=== PATIENT | male | born 1950 | race Caucasian/White ===

== ENCOUNTER 2021-04-04 09:37 | Outpatient (REF) | payer MEDICARE, SELFPAY ==
[2021-04-04 11:01] LABS: Hematocrit 45.6 % (42.0-52.0); Hemoglobin 15.1 g/dl (14.0-18.0); Mean Corpuscular HGB Conc 33.1 g/dl (31.0-36.0); Mean Corpuscular Hemoglobin 30.9 pg (27.0-33.0); Mean Corpuscular Volume 93.4 fL (80.0-98.0); Mean Platelet Volume 9.9 fL (9.4-12.4); Platelet Count 228 X10*3/uL (160-400); Red Blood Count 4.88 X10*6/uL (4.60-5.80); Red Cell Distribution Width 12.3 % (11.0-16.0)
[2021-04-04 11:41] LABS: Alanine Aminotransferase 16 U/L (0-40); Albumin Level 4.3 g/dL (3.5-5.0); Alkaline Phosphatase 54 U/L (39-117); Anion Gap 12 (12-20); Aspartate Amino Transferase 18 U/L (5-37); Bilirubin Total 0.8 mg/dL (0.0-1.0); Blood Urea Nitrogen 27 mg/dL (9-16); Calcium 9.1 mg/dL (8.4-10.2); Carbon Dioxide 27 mmol/L (22-29); Chloride 102 mmol/L (96-108); Cholesterol 196 mg/dL; Estimated Glomerular Filt Rate > 60; Glucose Fasting 101 mg/dL (60-99); HDL Cholesterol 44 mg/dL; LDL Cholesterol Calculated 121 mg/dl; Potassium 4.4 mmol/L (3.3-5.1); Sodium 137 mmol/L (135-145); Total Protein 6.7 g/dL (6.5-8.0); Triglycerides 155 mg/dL
== END 2021-04-04 09:38 | disposition home or self-care (01) ==
LOC: HO.MANLDS 09:37
PROVIDERS: PCP Internal Medicine; Visit Provider Internal Medicine
DX: E78.00 Pure hypercholesterolemia, unspecified (principal)
CPT/HCPCS: 36415; 80053; 80061; 85027

== ENCOUNTER 2023-05-12 10:32 | Outpatient (REF) | payer MEDICARE, SELFPAY ==
[2023-05-12 13:28] LABS: MANUAL DIFF FLAG NO
[2023-05-12 13:45] LABS: Basophils Percent Auto 0.2 % (0-2); Eosinophils Absolute Auto 0.2 X10*3/uL (0.0-0.4); Hematocrit 44.8 % (42.0-52.0); Hemoglobin 15.2 g/dl (14.0-18.0); Imm Gran Abs Auto 0.03 X10*3/uL (0.00-0.03); Imm Gran Pct Auto 0.3 % (0.0-0.4); Lymphocytes Absolute Auto 0.8 X10*3/uL (1.2-4.9); Lymphocytes Percent Auto 8.3 % (20-40); Mean Corpuscular HGB Conc 33.9 g/dl (31.0-36.0); Mean Corpuscular Hemoglobin 30.7 pg (27.0-33.0); Mean Corpuscular Volume 90.5 fL (80.0-98.0); Monocytes Absolute Auto 1.1 X10*3/uL (0.1-1.2); Neutrophils Absolute Auto 7.5 x10*3/uL (2.0-8.3); Neutrophils Percent Auto 78.2 % (45-73); Platelet Count 289 X10*3/uL (160-400); Red Blood Count 4.95 X10*6/uL (4.60-5.80); Red Cell Distribution Width 12.2 % (11.0-16.0); White Blood Count 9.6 X10*3/uL (4.8-10.8)
[2023-05-12 13:51] LABS: Alanine Aminotransferase 12 U/L (0-40); Alkaline Phosphatase 77 U/L (39-117); Anion Gap 16 (12-20); Aspartate Amino Transferase 15 U/L (5-37); Bilirubin Total 0.8 mg/dL (0.0-1.0); Blood Urea Nitrogen 17 mg/dL (9-16); Calcium 9.2 mg/dL (8.4-10.2); Carbon Dioxide 26 mmol/L (22-29); Chloride 101 mmol/L (96-108); Cholesterol 167 mg/dL (<200); Estimated Glomerular Filt Rate > 60; Glucose Random 99 mg/dL (60-115); HDL Cholesterol 41 mg/dL (>40); LDL Cholesterol Calculated 108 mg/dL (<100); Sodium 139 mmol/L (135-145); Total Protein 7.4 g/dL (6.5-8.0); Triglycerides 92 mg/dL (<150)
[2023-05-12 14:12] LABS: Prostate Specific Antigen 2.71 ng/mL (<0.05-4.0)
== END 2023-05-12 10:33 | disposition home or self-care (01) ==
LOC: HO.MANLDS 10:32
PROVIDERS: Visit Provider Internal Medicine
DX: I10 Essential (primary) hypertension (principal); Z12.5 Encounter for screening for malignant neoplasm of prostate
CPT/HCPCS: 36415; 80053; 80061; 84153; 85025

== ENCOUNTER 2024-01-19 13:30 | Outpatient (REF) | payer MEDICARE, SELFPAY ==
[2024-01-19 17:47] LABS: MANUAL DIFF FLAG NO
[2024-01-19 17:58] LABS: Appearance Urine Clear; Color Urine Yellow; Glucose Urine UA Negative (Negative); Leukocyte Esterase Urine Negative (Negative); Nitrite Urine Negative (Negative); Urine Blood Negative (Negative); Urine Ketones Negative (Negative); Urine Protein Negative (Neg-Trace)
[2024-01-19 18:04] LABS: Bacteria Urine None Seen (None Seen); Hyaline Casts Urine 0-2 /LPF (0-2); RBC Urine 0-2 /HPF (0-2); Squamous Epithelial Cell Urine 0-2 /HPF (0-2); WBC Urine 0-5 /HPF (0-5)
[2024-01-19 18:05] LABS: Alanine Aminotransferase 22 U/L (0-40); Albumin Level 3.6 g/dL (3.5-5.0); Alkaline Phosphatase 120 U/L (39-117); Anion Gap 16 (12-20); Aspartate Amino Transferase 31 U/L (5-37); Bilirubin Total 0.4 mg/dL (0.0-1.0); Blood Urea Nitrogen 16 mg/dL (9-16); Calcium 8.7 mg/dL (8.4-10.2); Carbon Dioxide 26 mmol/L (22-29); Chloride 100 mmol/L (96-108); Estimated Glomerular Filt Rate > 60; Glucose Random 141 mg/dL (60-115); Potassium 3.9 mmol/L (3.3-5.1); Sodium 138 mmol/L (135-145); Total Protein 7.2 g/dL (6.5-8.0)
[2024-01-19 18:16] LABS: Basophils Percent Auto 0.5 % (0-2); Eosinophils Absolute Auto 0.2 X10*3/uL (0.0-0.4); Eosinophils Percent Auto 2.1 % (0-4); Hematocrit 41.7 % (42.0-52.0); Hemoglobin 13.6 g/dl (14.0-18.0); Imm Gran Abs Auto 0.05 X10*3/uL (0.00-0.03); Imm Gran Pct Auto 0.6 % (0.0-0.4); Lymphocytes Absolute Auto 0.9 X10*3/uL (1.2-4.9); Lymphocytes Percent Auto 10.7 % (20-40); Mean Corpuscular HGB Conc 32.6 g/dl (31.0-36.0); Mean Corpuscular Volume 92.1 fL (80.0-98.0); Mean Platelet Volume 9.5 fL (9.4-12.4); Monocytes Absolute Auto 0.7 X10*3/uL (0.1-1.2); Monocytes Percent Auto 7.7 % (2-11); Neutrophils Absolute Auto 6.6 x10*3/uL (2.0-8.3); Neutrophils Percent Auto 78.4 % (45-73); Platelet Count 363 X10*3/uL (160-400); Red Blood Count 4.53 X10*6/uL (4.60-5.80); Red Cell Distribution Width 12.6 % (11.0-16.0); White Blood Count 8.4 X10*3/uL (4.8-10.8)
[2024-01-19 19:40] LABS: Erythrocyte Sedimentation Rate 73 MM/HR (0-15)
== END 2024-01-19 13:31 | disposition home or self-care (01) ==
LOC: HO.MANLDS 13:30
PROVIDERS: Visit Provider Internal Medicine
DX: R50.9 Fever, unspecified (principal)
CPT/HCPCS: 36415; 80053; 81001; 85025; 85652

== ENCOUNTER 2024-02-01 09:06 | Outpatient (REF) | payer MEDICARE, SELFPAY ==
[2024-02-01 14:34] LABS: Erythrocyte Sedimentation Rate 7 MM/HR (0-15)
== END 2024-02-01 09:07 | disposition home or self-care (01) ==
LOC: HO.MANLDS 09:06
PROVIDERS: Visit Provider Internal Medicine
DX: M35.3 Polymyalgia rheumatica (principal)
CPT/HCPCS: 36415; 85652

== ENCOUNTER 2024-02-08 09:20 | Outpatient (REF) | payer MEDICARE, SELFPAY ==
[2024-02-08 14:05] LABS: Basophils Percent Auto 0.2 % (0-2); Eosinophils Percent Auto 0.1 % (0-4); Hematocrit 44.3 % (42.0-52.0); Hemoglobin 14.8 g/dl (14.0-18.0); Imm Gran Abs Auto 0.13 X10*3/uL (0.00-0.03); Imm Gran Pct Auto 1.4 % (0.0-0.4); Lymphocytes Absolute Auto 0.6 X10*3/uL (1.2-4.9); Lymphocytes Percent Auto 5.9 % (20-40); MANUAL DIFF FLAG SCAN; Mean Corpuscular HGB Conc 33.4 g/dl (31.0-36.0); Mean Corpuscular Volume 89.9 fL (80.0-98.0); Mean Platelet Volume 9.7 fL (9.4-12.4); Monocytes Absolute Auto 0.2 X10*3/uL (0.1-1.2); Monocytes Percent Auto 2.3 % (2-11); Neutrophils Absolute Auto 8.5 x10*3/uL (2.0-8.3); Neutrophils Percent Auto 90.1 % (45-73); Platelet Count 284 X10*3/uL (160-400); Red Blood Count 4.93 X10*6/uL (4.60-5.80); Red Cell Distribution Width 14.2 % (11.0-16.0); SCAN SMEAR FLAG 1; White Blood Count 9.5 X10*3/uL (4.8-10.8)
[2024-02-08 14:14] LABS: Alanine Aminotransferase 11 U/L (0-40); Albumin Level 3.7 g/dL (3.5-5.0); Alkaline Phosphatase 59 U/L (39-117); Anion Gap 12 (12-20); Aspartate Amino Transferase 20 U/L (5-37); Bilirubin Total 0.6 mg/dL (0.0-1.0); Blood Urea Nitrogen 34 mg/dL (9-16); Calcium 8.7 mg/dL (8.4-10.2); Carbon Dioxide 26 mmol/L (22-29); Chloride 102 mmol/L (96-108); Estimated Glomerular Filt Rate > 60; Glucose Random 118 mg/dL (60-115); Potassium 4.1 mmol/L (3.3-5.1); Sodium 136 mmol/L (135-145); Total Protein 6.2 g/dL (6.5-8.0)
[2024-02-08 14:21] LABS: SLIDE REVIEW VERIFIED
[2024-02-08 14:41] LABS: Erythrocyte Sedimentation Rate 2 MM/HR (0-15)
== END 2024-02-08 09:21 | disposition home or self-care (01) ==
LOC: HO.MANLDS 09:20
PROVIDERS: Visit Provider Internal Medicine
DX: R50.9 Fever, unspecified (principal)
CPT/HCPCS: 36415; 80053; 85025; 85652

== ENCOUNTER 2024-02-25 10:16 | Outpatient (REF) | payer MEDICARE, SELFPAY ==
[2024-02-25 15:31] LABS: Erythrocyte Sedimentation Rate 2 MM/HR (0-15)
--- OUTSIDE RECORDS SUMMARY | 2024-03-01 07:20 | XMS_ITS | Continuity of Care Document ---
Author Organization [facility], [facility] Address [address] [place] [address] Assessment No assessment recorded. Plan of Treatment Reminders Order Date Submit Date Provider Last Modified By Organization Details Last Modified Time Details Appointments FOLLOW UP 15 2023 11:15A M DR CAREY Not available Not available Not available Lab ESR (erythroc yte sedimenta tion rate), blood 2023 [facility], [address] [place] [address], [id number], 02/28/2024 11:10:46 ESR (erythroc yte sedimenta tion rate), blood 2023 024 [facility], [address] [place] [address], [id number], 02/28/2024 11:10:46 Referral None recorded. Procedures None recorded. Surgeries None recorded. Imaging None recorded. Medication Orders zolpidem 10 mg tablet 2023 024 [facility] #[id number], [address] [place], [address], 02/14/2024 15:00:54 prednison e 10 mg tablet 2023 024 [facility] #[id number], [address] [place], [address], 02/14/2024 15:00:44 Patient TargetsNo targets recorded. Patient Instructions Encounter Date Encounter Id Patient Instructions Last Modified By Organization Details Last Modified Time 02/14/2024 [id number] insomnia: care instructions Not available 02/14/2024 15:00:26 polymyalgia rheumatica: care instructions Not available 02/14/2024 14:55:16 Reason for Referral None Reported. Results Created Date Observation Date Name Description Value Unit Range Abnormal Flag Note LastModifiedBy Organization Detail LastModifiedTime 02/19/20 24 02/18/2024 US, echoc ardio gram, trans thora cic, compl ete, w/ color flow No observ ation record ed. [email or web address] [address], [address], 02/21/2024 11:00:44 Result Notes None recorded. Problems Name Problem SNOMED Code Status Onset Date Resolution Date Notes Provider Name and Address Organization Details Recorded Time Essential hypertensio n 99501536 Active 2017 Soheila ham [facility] 8 10:35:22 Hypercholes terolemia 32015680 Active 2017 Soheila ham [facility] 8 10:35:27 Benign prostatic hyperplasia 430470722 Active 2017 Soheila ham [facility] 8 10:35:31 Diverticuli tis 885445757 Active 2017 Soheila ham [facility] 8 10:35:41 Acute sinusitis 70644092 Active 2022 JULISSA KRAUS [address] [facility],[place], [address], [facility] 3 12:05:10 COVID-19 273105705 Active 2022 Mando Carey, [address] [facility],[place], [address], [facility] 3 14:54:04 Post-acute COVID-19 4344039805 Active 2022 Mando Carey, DO [address] [facility],[place], [address], [facility] 3 14:54:31 Pneumonia caused by SARS-CoV-2 4315027549201 [address]7556 Active 2022 Mando CareyDO [address],[place], [address], [facility] 3 14:55:45 Cough 68530431 Active [address],[place], [address], [facility] 4 16:38:30 Fever 649318568 Active [address],[place], [address], [facility] 4 11:58:49 Polymyalgia rheumatica 01453985 Active 2023 Mando Carey [facility],[place], [address], [facility] 4 11:26:42 Dyspnea on exertion 36419070 Active 2023 Mando [address] [facility],[place], [address], [facility] 4 11:34:02 Insomnia 877252537 Active [address],[place], [address], [facility] 4 14:59:21 Cervical arthritis 798603395 Active 2017 Mando Carey [facility] [address],[place], [address], [facility] 8 11:04:29 Notes:gerd Problem Notes None recorded. Procedures Surgical History Date Name Laterality Status Provider Name and Address Organization Details Recorded Time 5 Colonoscopy completed Mando Carey [address],[place], [address], [facility] 11/23/2017 15:13:02 Imaging Results None recorded. Procedure Notes None recorded. Medical Equipment None Reported. Allergies No known drug allergies Medications Name Sig Start Date Stop Date Status Note LastModified by Organization Details LastModified Time atorvastati n 40 mg tablet TAKE 1 TABLET DAILY active Not Available Not Available No t Available prednisone 10 mg tablet Take 4 tablets every day by oral route for 30 days. active Not Available Not Available No t Available doxycycline hyclate 100 mg capsule 07/19 completed Not Available Not Available Not Available azithromyci n 250 mg tablet TAKE 2 TABLETS (500 MG) BY ORAL ROUTE ONCE DAILY FOR 1 DAY THEN 1 TABLET (250 MG) BY ORAL ROUTE ONCE DAILY FOR 4 DAYS 01/24 completed Not Available Not Available Not Available benzonatate 200 mg capsule TAKE 1 CAPSULE BY MOUTH THREE TIMES DAILY FOR 7 DAYS NEEDED FOR COUGH 01/24 completed Not Available Not Available Not Available lovastatin 40 mg tablet TAKE 1 TABLET DAILY 07/19 completed Not Available Not Available Not Available prednisone 5 mg tablet 07/19 completed Not Available Not Available Not Available amlodipine 5 mg tablet TAKE 1 TABLET BY MOUTH EVERY DAY FOR 30 DAYS 01/24 completed Not Available Not Available Not Available losartan 100 mg-hydrochl orothiazide 25 mg tablet TAKE 1 TABLET DAILY active Not Available Not Available No t Available omeprazole 20 mg capsule,del ayed release TAKE 1 CAPSULE DAILY active Not Available Not Available No t Available Aspir-81 mg tablet,neela yed release Take 1 tablet every day by oral route. active Not Available Not Available No t Available levofloxaci n 500 mg tablet TAKE 1 TABLET BY MOUTH EVERY DAY FOR 7 DAYS. 01/24 completed Not Available Not Available Not Available zolpidem 10 mg tablet Take 1 tablet every day by oral route as needed for 30 days. active Not Available Not Available No t Available methylpredn isolone 4 mg tablets in a dose pack Take 1 dose pk by oral route as directed for 6 days. 01/24 completed Not Available Not Available Not Available fluticasone propionate 50 mcg/actuati on nasal spray,suspe nsion inhale 1 spray each nostril twice a day 01/24 completed Not Available Not Available Not Available amoxicillin 875 mg-potassiu m clavulanate 125 mg tablet TAKE 1 TABLET BY MOUTH TWICE A DAY FOR 10 DAYS 05/15 completed Not Available Not Available Not Available losartan 100 mg-hydrochl orothiazide 12.5 mg tablet TAKE 1 TABLET DAILY 11/03 completed Not Available Not Available Not Available Fluzone High-Dose Quad (PF) 240 mcg/0.7 mL IM syringe [facility] 01/22 completed Not Available Not Available Not Available Vitals Date Recorded Body height Body mass index (BMI) Body weight Heart rate Oxygen saturation Oxygen saturation in Arterial blood by Pulse oximetry Systolic blood pressure Diastolic blood pressure Provider Name and Address Organization Details Last Updated DateTime 4 175.26 cm 29.5 kg/m2 95693.4 7 g 100 /min 98 % 98 % 144 mm[Hg] 74 mm[Hg] Chula Rojas [facility] 4 14:37:07 Social History Question Answer Notes LastModified by Organizat ion Details LastModified Time Tobacco Smoking Status Former Smoker Not Available [facility] 03:36:24 What Was The Date Of Your Most Recent Tobacco Screening? 02/14/2024 [email or web address] Information not available 02/14/2024 Do You Or Have You Ever Used Any Other Forms Of Tobacco Or Nicotine? No [email or web address] Information not available 08/08/2021 Sex: Unknown Functional Status None recorded. Mental Status None recorded. Family History Nothing Reported. Medical History No medical history recorded. Immunizations Vaccine Type Date Status Note Provider Nam e and Address Organization Details Recorded Time Pneumococcal conjugate PCV 13 8 completed [place], [address], [facility] 12/31/2017 09:32:36 Influenza, split virus, quadrivalent, preservative 8 completed DO [facility]cos [facility] [place], [address], [facility] 12/31/2017 09:32:44 influenza, unspecified formulation 2 [facility]/15/2022 14:28:14 [facility] 12:07:16 zoster live 5 completed Soheila ham [facility] 03/18/2018 12:07:45 Influenza, split virus, quadrivalent, preservative 9 [facility] 08:02:18 Influenza, split virus, quadrivalent, preservative 0 completed Opal ham [facility] 01/23/2020 13:29:57 COVID-19, mRNA, LNP-S, PF, 100 mcg/0.5mL dose or 50 mcg/0.25mL dose 1 completed Soheila ham [facility] 08/05/2020 15:50:51 COVID-19, mRNA, LNP-S, PF, 100 mcg/0.5mL dose or 50 mcg/0.25mL dose 1 completed Soheila ham [facility] 08/06/2020 15:04:10 Past Encounters Encounter ID Performer Location Encounter Start Date Encounter Closed Date Diagnosis/Indication Diagnosis SNOMED-CT Code Diagnosis ICD10 Code [id number] Mando Carey [facility] [address] [place] [phone] 01/25/2024 10:42:42 01/25/2024 11:47:58 Depression screening 090432403 Z13.31 Active or passive immunization 473720710 Z23 Essential hypertension 76768876 I10 Polymyalgi a rheumatica 69253668 M35.3 Dyspnea on exertion 6084 5006 R06.09 [id number] Mando Carey [facility] [address] [place] [phone] 02/14/2024 14:22:44 02/14/2024 15:04:32 Essential hypertension 53643560 I10 Hypercholesterolemia 136 93390 E78.00 Polymyalgi a rheumatica 03776420 M35.3 Insomnia 476564502 G47.0 9 Health Concerns Section Related Observation LastModified by Organization Detai ls LastModified Time None Recorded Concern Status LastModified by Organization Details LastModified Time None Recorded Payers Encounter Date Sequence Insurance Name Policy Number Policy Lyeva Covered Member ID Leyva Member ID Guarantor Name 02/14/2024 1 [place] [employer] Zaid Castro [id number] Zaid Navase 02/14/2024 2 [place] [id number] Zaid Castro [id number] Zaid Matthew Notes Date Note Type Note Provider Name and Address Organization Details Recorded Time 02/14/2024 text/html here for recjk o f pmr doing fine no sx just is not able to sleepfeels great but having a hard time sleeping usus every other nightesr was 71 after pred down to 7 then 2all myalgias are goneprob is not sleepingtoherwise states feels great Mando Carey, DO [address] [facility] [address], [place], [address], [facility] 02/14/2024 15:02:29
--- OUTSIDE RECORDS SUMMARY | 2024-03-01 07:20 | XMS_ITS | Data Portability ---
Author Organization [facility], Home Service Address [address] [place] [address] Assessment Encounter Date Assessment Date Assessment LastModified by Organization Details LastModified Time 11/10/2022 11/10/2022 [id number] [place] [id number] ([employer] SALESPERSON) MDM MODERATE MUST MEET 2 OUT OF 3 ELEMENTS: PROBLEMS, DATA OR RISK ELEMENT 1: PROBLEMS ADDRESSED 1 OR MORE CHRONIC ILLNESS WITH EXACERBATION OR 2 OR MORE STABLE CHRONIC ILLNESSES OR 1 UNDIAGNOSED NEW PROBLEM OR 1 ACUTE ILLNESS W/SYMPTOMS OR 1 ACUTE COMPLICATED INJURY ELEMENT 2: DATA MUST MEET 1 OF 3 CATEGORIES CATEGORY 1: REVIEW OF PRIOR EXTERNAL NOTES, REVIEW OF RESULTS, ORDERING OF EACH TEST, ASSESSMENT REQUIRING INDEPENDENT HISTORIAN OR CATEGORY 2: INDEPENDENT INTERPRETATION OF TESTS BY ANOTHER PHYSICIAN OR SPECIALIST OR CATEGORY 3: DISCUSSION OF MGT OR TEST INTERPRETATION W/EXTERNAL PHYSICIAN OR SPECIALIST ELEMENT 3: RISK RISK OF COMPLICATIONS AND/OR MORBIDITY OR MORTALITY OF PATIENT MANAGEMENT PROVIDER MUST THOROUGHLY DOCUMENT EACH ELEMENT THAT IS COVERED Not available 11/10/2022 14:18:12 05/17/2023 05/17/2023 [id number] [place] [id number] ([employer] SALESPERSON) : MDM LOW MUST MEET 2 OF 3 ELEMENTS: PROBLEMS, DATA OR RISK ELEMENT 1: PROBLEMS ADDRESSED (LOW): 2 OR MORE SELF-LIMITED OR MINOR PROBLEMS OR 1 STABLE CHRONIC ILLNESS OR 1 ACUTE UNCOMPLICATED ILLNESS OR INJURY ELEMENT 2: DATA TO BE REVISED AND ANALYZED (LOW) MUST MEET 1 OF 2 CATEGORIES: CATEGORY 1. REVIEW OF PRIOR EXTERNAL NOTES/RESULTS, ORDERING OF TEST(S) CATEGORY 2. ASSESSMENT REQUIRING INDEPENDENT HISTORIAN(S) INCLUDE WHO THE HISTORIAN IS AND RELATION TO PT AND WHY PT IS UNABLE TO GIVE COMPLETE HISTORY ELEMENT 3: RISK (LOW) RISK OF COMPLICATIONS AND/OR MORBIDITY OR MORTALITY OF PATIENT MANAGEMENT PROVIDER MUST THOROUGHLY DOCUMENT ALL OF THE ELEMENTS COVERED Not available 05/17/2023 14:25:40 01/25/2024 01/25/2024 [id number] [place] [id number] (E[employer] SALESPERSON) MDM MODERATE MUST MEET 2 OUT OF 3 ELEMENTS: PROBLEMS, DATA OR RISK ELEMENT 1: PROBLEMS ADDRESSED 1 OR MORE CHRONIC ILLNESS WITH EXACERBATION OR 2 OR MORE STABLE CHRONIC ILLNESSES OR 1 UNDIAGNOSED NEW PROBLEM OR 1 ACUTE ILLNESS W/SYMPTOMS OR 1 ACUTE COMPLICATED INJURY ELEMENT 2: DATA MUST MEET 1 OF 3 CATEGORIES CATEGORY 1: REVIEW OF PRIOR EXTERNAL NOTES, REVIEW OF RESULTS, ORDERING OF EACH TEST, ASSESSMENT REQUIRING INDEPENDENT HISTORIAN OR CATEGORY 2: INDEPENDENT INTERPRETATION OF TESTS BY ANOTHER PHYSICIAN OR SPECIALIST OR CATEGORY 3: DISCUSSION OF MGT OR TEST INTERPRETATION W/EXTERNAL PHYSICIAN OR SPECIALIST ELEMENT 3: RISK RISK OF COMPLICATIONS AND/OR MORBIDITY OR MORTALITY OF PATIENT MANAGEMENT PROVIDER MUST THOROUGHLY DOCUMENT EACH ELEMENT THAT IS COVERED Not available 01/25/2024 11:33:54 Plan of Treatment Reminders Order Date Submit Date Provider Last Modified By Organization Details Last Modified Time Details Appointments FOLLOW UP 15 2023 11:15A M DR CAREY Not available Not available Not available Lab CMP, serum or plasma 2022 023 [facility], [address] [place] [address], [id number], 05/13/2023 14:59:02 CBC 2022 023 [facility], [address] [place] [address], [id number], 11/10/2022 14:25:23 PSA, serum or plasma 2022 023 [facility], [address] [place] [address], [id number], 11/10/2022 14:25:23 lipid panel, blood 2022 023 [facility], [address] [place] [address], [id number], 11/10/2022 14:25:23 ESR (erythroc yte sedimenta tion rate), blood 2023 024 [facility], [address] [place] [address], [id number], 02/02/2024 11:51:12 ESR (erythroc yte sedimenta tion rate), blood 2023 024 [facility], [address] [place] [address], [id number], 02/09/2024 11:29:45 ESR (erythroc yte sedimenta tion rate), blood 2023 024 [facility], [address] [place] [address], [id number], 02/09/2024 11:29:45 ESR (erythroc yte sedimenta tion rate), blood 2023 024 [facility], [address] [place] [address], [id number], 02/28/2024 11:10:46 ESR (erythroc yte sedimenta tion rate), blood 2023 024 [facility], [address] [place] [address], [id number], 02/28/2024 11:10:46 Referral None recorded. Procedures None recorded. Surgeries None recorded. Imaging US, echocardi ogram, transthor acic, complete, w/ color flow 2023 [email or web address] Not available 01/26/2024 08:31:38 Medication Orders amlodipin e 5 mg tablet 2023 [facility]2024, [address] [place], [address], 01/25/2024 10:51:27 prednison e 10 mg tablet 2023 024 [facility] #5, [address] [place], [address], 01/25/2024 11:29:36 zolpidem 10 mg tablet 2023 024 [facility]2024, [address] [place], [address], 02/14/2024 15:00:54 prednison e 10 mg tablet 2023 024 [facility] #2024, [address] [place], [address], 02/14/2024 15:00:44 Patient TargetsNo targets recorded. Patient Instructions Encounter Date Encounter Id Patient Instructions Last Modified By Organization Details Last Modified Time 01/25/2024 [id number] polymyalgia rheumatica: care instructions Not available 01/25/2024 11:29:34 02/14/2024 [id number] insomnia: care instructions Not available 02/14/2024 15:00:26 polymyalgia rheumatica: care instructions Not available 02/14/2024 14:55:16 Reason for Referral None Reported. Results Created Date Observation Date Name Description Value Unit Range Abnormal Flag Note LastModifiedBy Organization Detail LastModifiedTime 10/04/19 24 10/04/2023 XR, chest , 2 view No observ ation record ed. [email or web address] [address], [address], 10/08/2023 08:42:28 02/19/20 24 02/18/2024 US, echoc ardio gram, trans thora cic, compl ete, w/ color flow No observ ation record ed. [email or web address] [address], [address], 02/21/2024 11:00:44 Result Notes None recorded. Problems Name Problem SNOMED Code Status Onset Date Resolution Date Notes Provider Name and Address Organization Details Recorded Time Essential hypertensio n 36479157 Active 2017 [facility] 8 10:35:22 Hypercholes terolemia 02997249 Active 2017 [facility] 8 10:35:27 Benign prostatic hyperplasia 269370958 Active 2017 Soheila ham [facility] 8 10:35:31 Diverticuli tis 642960244 Active 2017 [facility] 8 10:35:41 Acute sinusitis 85638977 Active 2022 JULISSA [address]US [address],[place], [facility] [place], [address], [facility] 3 12:05:10 COVID-19 838298694 Active 2022 Mando Carey DO [address],[place], [facility] [place], [address], [facility] 3 14:54:04 Post-acute COVID-19 3845519502 Active 2022 Mando Carey DO [address],[place], [facility] [place], [address], [facility] 3 14:54:31 Pneumonia caused by SARS-CoV-2 6325287570811 06901 Active 2022 Mando Carey DO [address],[place], [facility] [place], [address], [facility] 3 14:55:45 Cough 69123331 Active 2023 Mando Carey DO [address],[place], [facility] [place], [address], [facility] 4 16:38:30 Fever 078969852 Active 2023 Mando Carey DO [address],[place], [facility] [place], [address], [facility] 4 11:58:49 Polymyalgia rheumatica 62800045 Active 2023 Mando Carey DO [address],[place], [facility] [place], [address], [facility] 4 11:26:42 Dyspnea on exertion 33447062 Active 2023 Mando Carey, [address] [place] [address],[place], [address], [facility] 4 11:34:02 Insomnia 424444306 Active 2023 Mando Carey [address],[place], [address], [facility] 4 14:59:21 Cervical arthritis 696765696 Active 2017 Mando Carey, [address],[place], [address], [facility] 8 11:04:29 Notes:gerd Problem Notes None recorded. Procedures Surgical History Date Name Laterality Status Provider Name and Address Organization Details Recorded Time 5 Colonoscopy completed Mando Carey [address],[place], [address], [facility] 11/23/2017 15:13:02 Imaging Results Imaging Date Name Status LastModified by Organiz ation Details LastModified Time 10/04/2023 XR, chest, 2 view completed [email or web address] [address], [address], 10/08/2023 08:42:28 02/18/2024 US, echocardiog jenn, transthorac ic, complete, w/ color flow completed [email or web address] [address], [address], 02/21/2024 11:00:44 Procedure Notes None recorded. Medical Equipment None [...] and Address Organization Details Last Updated DateTime 3 175.26 cm 30.4 kg/m2 52237.0 3 g 85 /min 96 % 96 % 140 mm[Hg] 80 mm[Hg] Chula [facility] 3 14:00:53 Date Recorded Body height Body mass index (BMI) Body weight Heart rate Oxygen saturation Oxygen saturation in Arterial blood by Pulse oximetry Systolic blood pressure Diastolic blood pressure Provider Name and Address Organization Details Last Updated DateTime 4 175.26 cm 30.1 kg/m2 13708.8 4 g 78 /min 96 % 96 % 160 mm[Hg] 78 mm[Hg] [facility] 4 14:45:23 Date Recorded Body height Body mass index (BMI) Body weight Heart rate Oxygen saturation Oxygen saturation in Arterial blood by Pulse oximetry Systolic blood pressure Diastolic blood pressure Provider Name and Address Organization Details Last Updated DateTime 4 175.26 cm 29.7 kg/m2 77232.0 7 g 97 /min 97 % 97 % 146 mm[Hg] 86 mm[Hg] Angel Martin [facility] 4 10:53:10 Date Recorded Body height Body mass index (BMI) Body weight Heart rate Oxygen saturation Oxygen saturation in Arterial blood by Pulse oximetry Systolic blood pressure Diastolic blood pressure Provider Name and Address Organization Details Last Updated DateTime 4 175.26 cm 29.5 kg/m2 38185.4 7 g 100 /min 98 % 98 % 144 mm[Hg] 74 mm[Hg] [facility] 4 14:37:07 Social History Question Answer Notes LastModified by Organizat ion Details LastModified Time Tobacco Smoking Status Former Smoker Not Available [facility] 01/23/2020 03:36:24 What Was The Date Of Your Most Recent Tobacco Screening? 02/14/2024 [email or web address] Information not available 02/14/2024 Do You Or [...] Time Pneumococcal conjugate PCV 13 8 completed Mando Carey DO [address] [facility],[place], [place], [address], [facility] 12/31/2017 09:32:36 Influenza, split virus, quadrivalent, preservative 8 completed Mando Carey DO [address] [place] [address],[place], [address], [facility] 12/31/2017 09:32:44 influenza, unspecified formulation 2 completed Christianne ham [facility] 05/15/2022 14:28:14 Td (adult) 2 [facility] 03/18/2018 12:07:16 zoster live 5 completed Soheila ham [facility] 03/18/2018 12:07:45 Influenza, split virus, quadrivalent, preservative 9 completed Opal ham [facility] 11/30/2018 08:02:18 Influenza, split virus, quadrivalent, preservative 0 [facility] 01/23/2020 13:29:57 COVID-19, mRNA, LNP-S, PF, 100 mcg/0.5mL dose or 50 mcg/0.25mL dose 1 completed Soheila ham [facility] 08/05/2020 15:50:51 COVID-19, mRNA, LNP-S, PF, 100 mcg/0.5mL dose or 50 mcg/0.25mL dose 1 jses ham [facility] 08/06/2020 15:04:10 Past Encounters Encounter ID Performer Location Encounter Start Date Encounter Closed Date Diagnosis/Indication Diagnosis SNOMED-CT Code Diagnosis ICD10 Code [id number] Mando Carey DO [facility] 6 [facility],[place] [address] 08/23/2017 10:34:37 08/23/2017 16:08:10 Hypercholesterolemia 01731459 E78.00 Essential hypertension 45025254 I10 Benign pro static hyperplasia 223207369 N40.[id number] [facility] [address] [place] [address] 02/23/2018 08:52:52 02/23/2018 12:28:31 Adult health examination 132357631 Z00.00 Hypercholesterolemia 136 43555 E78.00 Essential hypertension 45838917 I10 [id number] [facility] [address] [place] [address] 03/18/2018 11:43:54 03/18/2018 12:36:31 Essential hypertension 42582375 I10 Hypercholesterolemia 136 71387 E78.00 Gastroesop hageal reflux disease 293720923 K21.[id number] [facility] [address] [place] [address] 07/19/2018 15:40:04 07/20/2018 09:08:28 Essential hypertension 81385104 I10 Hypercholesterolemia 136 25128 E78.00 Abdominal aortic aneurysm screening 312930926 Z13.6 Hepatitis C screening 41 2783044 Z11.59 Gastroesop hageal reflux disease 174849176 K21.[id number] [facility] [address] [place] [address] 02/06/2019 14:49:05 02/06/2019 15:44:53 Essential hypertension 62528210 I10 Hypercholesterolemia 136 69360 E78.00 Gastroesop hageal reflux disease 066105268 K21.9 Benign pro static hyperplasia 171948115 N40.0 Diverticulitis 249404780 K57.[id number] [facility] [address] [place] [address] 08/07/2019 13:57:10 08/07/2019 14:40:35 Essential hypertension 38896965 I10 Benign pro static hyperplasia 180831215 N40.0 Diverticulitis 236976509 K57.92 Cervical arthritis 64621 1000 M46.92 Hypercholesterolemia 136 69317 E78.[id number] [facility] [address] [place], [place] [address] , [place] [address] 01/23/2020 13:21:38 01/23/2020 14:29:23 Essential hypertension 52408333 I10 Gastroesop hageal reflux disease 477304304 K21.[id number] [facility] [address] [place], [place] [address] [address] 08/06/2020 14:53:52 08/06/2020 15:37:54 Essential hypertension 00645635 I10 Benign pro static hyperplasia 822074526 N40.0 Hypercholesterolemia 136 11284 E78.00 Gastroesop hageal reflux disease 557753063 K21.[id number] [facility] [address] [place], [place] [address] , [place] [address] 03/03/2021 08:24:29 03/03/2021 16:20:26 Cervical arthritis 531337121 M46.92 Essential hypertension 14621589 I10 Hypercholesterolemia 136 34450 E78.[id number] [facility] [address] [place] [address], [place] [address] 08/08/2021 13:53:47 08/12/2021 11:27:50 Essential hypertension 24244649 I10 Hypercholesterolemia 136 44824 E78.00 Gastroesop hageal reflux disease 285370177 K21.9 Advance care planning 71 8837330 Z71.89 Cervical arthritis 00819 [address]46.[id number] [facility] [address] [place], [place] [address] , [place] [address] 11/03/2021 15:28:58 11/03/2021 16:21:25 Essential hypertension 65690927 I10 Cervical arthritis 11595 1000 M46.92 Gastroesop hageal reflux disease 383673555 K21.9 [id number] KONSTANTIN TURNER [facility] [address] [place], [place] [address] , [place] [address] 05/04/2022 09:28:22 05/04/2022 13:31:21 Acute sinusitis 64981498 J01.[id number] [facility] [address] [place] [address] 05/15/2022 14:07:00 05/15/2022 16:05:57 Essential hypertension 20292471 I10 Post-acute COVID-19 1119 846961 U09.9 Pneumonia caused by SARS-CoV-2 6218474578 08697250 J12.82 Cervical arthritis 27126 [id number] [facility] [address] [place] [address] 11/10/2022 13:54:37 11/10/2022 14:37:45 Benign prostatic hyperplasia 377718369 N40.0 Essential hypertension 97715173 I10 Hypercholesterolemia 136 44131 E78.[id number] [facility] [address] [place] [address] 05/17/2023 08:30:45 05/17/2023 16:37:14 Benign prostatic hyperplasia 270978859 N40.0 Essential hypertension 75323231 I10 Hypercholesterolemia 136 73074 E78.[id number] [facility] [address] [place] [address], [place] [address] 12/03/2023 14:37:11 12/03/2023 15:10:50 Essential hypertension 43470273 I10 [id number] Mando Carey [facility] [address] [place] [address] 01/25/2024 10:42:42 01/25/2024 11:47:58 Depression screening 409899099 Z13.31 Active or passive immunization 753461559 Z23 Essential hypertension 60449348 I10 Polymyalgi a rheumatica 03288738 M35.3 Dyspnea on exertion 6084 [address]6 R06.[id number] [facility] [address] [place] [address] 02/14/2024 14:22:44 02/14/2024 15:04:32 Essential hypertension 07175559 I10 Hypercholesterolemia 136 87078 E78.00 Polymyalgi a rheumatica 81424460 M35.3 Insomnia 439053366 G47.0 9 Health Concerns Section Related Observation LastModified by Organization Detai ls LastModified Time None Recorded Concern Status LastModified by Organization Details LastModified Time None Recorded Advance Directives Directive None Recorded Payers Encounter Date Sequence Insurance Name Policy Number Policy Leyva Covered Member ID Leyva Member ID Guarantor Name 11/10/2022 1 [place] [employer] Zaid E Vernon [id number] 2 Zaid Matthew 11/10/2022 2 [place] [id number] Zaid E Matthew [id number] Zaid Vernon 05/17/2023 1 [place] Zaid E Matthew [id number] 2 Zaid Matthew 05/17/2023 2 [place] [id number] Zaid E Vernon [id number] Zaid Vernon 12/03/2023 1 [place] Zaid E Matthew [id number] 2 Zaid Vernon 12/03/2023 2 [place] [id number] Zaid E Matthew [id number] Zaid Vernon 01/25/2024 1 [place] Zaid E Matthew [id number] 2 Zaid Matthew 01/25/2024 2 [place] [id number] Zadi E Vernon [id number] Zaid Matthew 02/14/2024 1 [place] Zaid E Vernon [id number] 2 Zaid Matthew 02/14/2024 2 [place] [id number] Zaid E Matthew [id number] Zaid Matthew Notes Date Note Type Note Provider Name and Address Organization Details Recorded Time 11/10/2022 text/html here for rechk a nd is doing welldoing good and not having any issue sno cp no sobsleep is fairappetite ofk \bowels okbladder is ok Mando Carey [address], [place], [address], [facility] 11/10/2022 14:21:32 05/17/2023 text/html patient is evalu ated via tele/video assessment per patient consentduring current pandemic [id number] has been doing ok overallnot checking his bpno cp no sobstates had URI for the last 2 weeks finally feeling bettercough goneno abd pain bowels okbladder oksleep is goodhas lost 15 lbs by watching his carbs Mando Duran DO Lin [address], [place], [address], [facility] 05/17/2023 14:26:00 12/03/2023 text/html has noticed an elevation of his bp has been consistently higher than normalno cp no sobotherwise feels goodurinating is better Mando Carey DO [address] [facility] [address], [place], [address], [facility] 12/03/2023 15:09:53 01/25/2024 text/html her=e has been f eeling lousy like he has a fever ( he doesnt)has been having pain in his musclesand all in his upper shoulders and u[[er arms and neck very sore tired and run down feeling Mando Carey DO [address], [place], [address], [facility] 01/25/2024 11:34:41 02/14/2024 text/html here for recjk o f pmr doing fine no sx just is not able to sleepfeels great but having a hard time sleeping usus every other nightesr was 73 after pred down to 7 then 2all myalgias are goneprob is not sleepingtoherwise states feels great Mando Carey DO [address], [place], [address], [facility] 02/14/2024 15:02:29
--- OUTSIDE RECORDS SUMMARY | 2024-03-01 07:20 | XMS_ITS | Continuity of Care Document ---
Author Organization [facility], [facility] Address [address] [place] [address] Assessment Encounter Date Assessment Date Assessment LastModified by Organization Details LastModified Time 01/25/2024 01/25/2024 [id number] [place] [id number] (ALUMINUM POURER) MDM MODERATE MUST MEET 2 OUT OF [...] yte sedimenta tion rate), blood 2023 024 [facility], [address] [place] [address], [place], [address], 02/02/2024 11:51:12 ESR (erythroc yte sedimenta tion rate), blood 2023 024 [facility], [address] [place] [address], [address], 02/09/2024 11:29:45 ESR (erythroc yte sedimenta tion rate), blood 2023 [facility], [address] [place] [address], [place], [address], 02/09/2024 11:29:45 Referral None recorded. Procedures None recorded. Surgeries None recorded. Imaging US, echocardi ogram, transthor acic, complete, w/ color flow 2023 [email or web address] Not available 01/26/2024 08:31:38 Medication Orders prednison e 10 mg tablet 2023 [facility], [address] [place], [address], 01/25/2024 11:29:36 Patient TargetsNo targets recorded. Patient Instructions Encounter Date Encounter Id Patient Instructions Last Modified By Organization Details Last Modified Time 01/25/2024 [id number] polymyalgia rheumatica: care instructions Not available 01/25/2024 11:29:34 Reason for Referral None Reported. Results Created Date Observation Date Name Description Value Unit Range Abnormal Flag Note LastModifiedBy Organization Detail LastModifiedTime 02/19/2002/18/2024 US, echoc ardio gram, trans thora cic, compl ete, w/ color flow No observ ation record ed. [email or web address] [address], [address], 02/21/2024 11:00:44 Result Notes None recorded. Problems Name Problem SNOMED Code Status Onset Date Resolution Date Notes Provider Name and Address Organization Details Recorded Time Essential hypertensio n 90186569 Active 2017 [facility] 8 10:35:22 Hypercholes terolemia 29418019 Active 2017 [facility] 8 10:35:27 Benign prostatic hyperplasia 513305855 Active 2017 [facility] 8 10:35:31 Diverticuli tis 518532506 Active 2017 Soheila Lu [facility] 8 10:35:41 Acute sinusitis 19136255 Active 2022 JULISSA KRAUS [address], [place], [address], [facility] 3 12:05:10 COVID-19 367766762 Active 2022 Mando Duran Lin, DO [address], [place], [address], [facility] 3 14:54:04 Post-acute COVID-19 2670839784 Active 2022 Mando Duran Lin DO [address], [place], [address], [facility] 3 14:54:31 Pneumonia caused by SARS-CoV-2 1138741086929 60378 Active 2022 Mando Duran Lin, DO [address], [facility] [place], [address], [facility] 3 14:55:45 Cough 86401527 Active 2023 Mando DouglasZoltan Carey, DO [address], [place], [address], [facility] 4 16:38:30 Fever 125105347 Active 2023 Mando DouglasZoltan Carey DO [address] [address], [facility], [address], [facility] 4 11:58:49 Polymyalgia rheumatica 93875976 Active 2023 Mando aCrey, DO [address], [place], [address], [facility] 4 11:26:42 Dyspnea on exertion 24126592 Active 2023 Mando Carey DO [address],[place], [address], [facility] 4 11:34:02 Insomnia 922573087 Active 2023 Mando Carey DO [address] [place] [address],[place], [address], [facility] 4 14:59:21 Cervical arthritis 618067766 Active 2017 Mando Carey [address],[place], [address], [facility] 8 11:04:29 Notes:gerd Problem Notes None recorded. Procedures Surgical History Date Name Laterality Status Provider Name and Address Organization Details Recorded Time 5 Colonoscopy completed Mando Carey [address],[place], [address], [facility] 11/23/2017 15:13:02 Imaging Results None [...] Updated DateTime 4 175.26 cm 29.7 kg/m2 05371.0 7 g 97 /min 97 % 97 % 146 mm[Hg] 86 mm[Hg] [facility] 4 10:53:10 Social History Question Answer Notes LastModified by Organizat ion Details LastModified Time Tobacco Smoking Status Former Smoker Not Available [facility]/2020 03:36:24 What Was The Date Of Your Most Recent Tobacco Screening? 02/14/2024 [email or web address] Information not available 02/14/2024 Do You Or [...] Pneumococcal conjugate PCV 13 8 completed Mando Carey, DO [address] [place], [address], [facility] 12/31/2017 09:32:36 Influenza, split virus, quadrivalent, preservative 8 completed Mando Carey, DO [address] [facility] [place], [address], [facility] 12/31/2017 09:32:44 influenza, unspecified formulation [address] [facility] 14:28:14 Td (adult) [address] [facility] 03/18/2018 12:07:16 zoster live [address] [facility] 03/18/2018 12:07:45 Influenza, split virus, quadrivalent, preservative 9 completed Opal Stallings [facility] 11/30/2018 08:02:18 Influenza, split virus, quadrivalent, preservative 0 completed Opal Stallings [facility] 01/23/2020 13:29:57 COVID-19, mRNA, LNP-S, PF, 100 mcg/0.5mL dose or 50 mcg/0.25mL dose 1 completed Soheila ham [facility] 08/05/2020 15:50:51 COVID-19, mRNA, LNP-S, PF, 100 mcg/0.5mL dose or 50 mcg/0.25mL dose [address] [facility] 08/06/2020 15:04:10 Past Encounters Encounter ID Performer Location Encounter Start Date Encounter Closed Date Diagnosis/Indication Diagnosis SNOMED-CT Code Diagnosis ICD10 Code [id number] DO JUNAID Marcos [facility] [address] [facility],[place] [address] 01/25/2024 10:42:42 01/25/2024 11:47:58 Depression screening 080443717 Z13.31 Active or passive immunization 860210307 Z23 Essential hypertension 72959423 I10 Polymyalgi a rheumatica 17692153 M35.3 Dyspnea on exertion 6084 5006 R06.09 Health Concerns Section Related Observation LastModified by Organization Detai ls LastModified Time None Recorded Concern Status LastModified by Organization Details LastModified Time None Recorded Payers Encounter Date Sequence Insurance Name Policy Number Policy Leyva Covered Member ID Leyva Member ID Guarantor Name 01/25/2024 1 [place] [employer] Zaid Castro [id number] Zaid Castro 01/25/2024 2 [place] [id number] Zaid Castro [id number] Zaid Castro Notes Date Note Type Note Provider Name and Address Organization Details Recorded Time 01/25/2024 text/html her=e has been feeling lousy like he has a fever ( he doesnt)has been having pain in his musclesand all in his upper shoulders and u[[er arms and neck very sore tired and run down feeling Mando Carey DO [address] [facility],[address] [address], [place], [address], [facility] 01/25/2024 11:34:41
--- OUTSIDE RECORDS SUMMARY | 2024-03-01 07:20 | XMS_ITS | Continuity of Care Document ---
Author Organization [facility], [facility] Address [address] [place] [address] Assessment No assessment recorded. Plan of Treatment Reminders Order Date Submit Date Provider Last Modified By Organization Details Last Modified Time Details Appointments FOLLOW UP 15 2023 11:15A M DR CAREY Not available Not available Not available Lab None recorded. Referral None recorded. Procedures None recorded. Surgeries None recorded. Imaging None recorded. Medication Orders amlodipin e 5 mg tablet 2023 024 [facility], [address] [place], [address], 01/25/2024 10:51:27 Patient TargetsNo targets recorded. Patient InstructionsNo instructions recorded. Reason for Referral None Reported. Results Created Date Observation Date Name Description Value Unit Range Abnormal Flag Note LastModifiedBy Organization Detail LastModifiedTime 02/19/20 24 02/18/2024 US, echoc ardio gram, trans thora cic, compl ete, w/ color flow No observ ation record ed. [email or web address] [address], [address], 02/21/2024 11:00:44 Result Notes None recorded. Problems Name Problem SNOMED Code Status Onset Date Resolution Date Notes Provider Name and Address Organization Details Recorded Time Essential hypertensio n 83310124 Active 2017 [facility] 8 10:35:22 Hypercholes terolemia 65772195 Active 2017 [facility] 8 10:35:27 Benign prostatic hyperplasia 393016539 Active 2017 Soheila Aly jitendra [facility] 8 10:35:31 Diverticuli tis 797059983 Active 2017 [facility] 8 10:35:41 Acute sinusitis 40163670 Active 2022 JULISSA KRAUS [address], [place], [address], [facility] 3 12:05:10 COVID-19 246623262 Active 2022 Mando Roger Carey DO [address], [place], [address], [facility] 3 14:54:04 Post-acute COVID-19 5912467494 Active 2022 Mando Carey DO [address], [place], [address], [facility] 3 14:54:31 Pneumonia caused by SARS-CoV-2 7499740927946 25808 Active 2022 Mando Carey DO [address], [place], [address], [facility] 3 14:55:45 Cough 32615285 Active 2023 Mando Carey DO [address], [place], [address], [facility] 4 16:38:30 Fever 325529225 Active 2023 Mando Carey DO [address], [place], [address], [facility] 4 11:58:49 Polymyalgia rheumatica 69062541 Active 2023 Mando Carey DO [address], [place], [address], [facility] 4 11:26:42 Dyspnea on exertion 52232368 Active 2023 Mando Carey DO 6 [facility],[place], [address], [facility] 4 11:34:02 Insomnia 212100549 Active 2023 Mando Carey DO 6 [facility],[place], [address], [facility] 4 14:59:21 Cervical arthritis 439881368 Active 2017 Mando Carey [address],[place], [address], [facility] 8 11:04:29 Notes:gerd Problem Notes None recorded. Procedures Surgical History Date Name Laterality Status Provider Name and Address Organization Details Recorded Time 5 Colonoscopy completed Mando Carey DO [address] [place] [address],[place], [address], [facility] 11/23/2017 15:13:02 Imaging Results None [...] Updated DateTime 4 175.26 cm 30.1 kg/m2 78043.8 4 g 78 /min 96 % 96 % 160 mm[Hg] 78 mm[Hg] [facility] 4 14:45:23 Social History Question Answer Notes LastModified by Organizat ion Details LastModified Time Tobacco Smoking Status Former Smoker Not Available [employer] 01/23/2020 03:36:24 What Was The Date Of Your Most Recent Tobacco Screening? 02/14/2024 [email or web address] Information not available 02/14/2024 Do You Or [...] 13 8 completed Mando Carey DO [address] [place], [address], [facility] 12/31/2017 09:32:36 Influenza, split virus, quadrivalent, preservative 8 completed Mando Carey DO [address] [place], [address], [facility] 12/31/2017 09:32:44 influenza, unspecified formulation 2 [facility]20[facility] 14:28:14 Td (adult) 2 [facility] 03/18/2018 12:07:16 zoster live 5 completed [facility] 03/18/2018 12:07:45 Influenza, split virus, quadrivalent, preservative 9 completed Opal Stallings [facility] 11/30/2018 08:02:18 Influenza, split virus, quadrivalent, preservative 0 [facility] 01/23/2020 13:29:57 COVID-19, mRNA, LNP-S, PF, 100 mcg/0.5mL dose or 50 mcg/0.25mL dose 1 completed Soheila ham [facility] 08/05/2020 15:50:51 COVID-19, mRNA, LNP-S, PF, 100 mcg/0.5mL dose or 50 mcg/0.25mL dose 1 jess ham [facility] 08/06/2020 15:04:10 Past Encounters Encounter ID Performer Location Encounter Start Date Encounter Closed Date Diagnosis/Indication Diagnosis SNOMED-CT Code Diagnosis ICD10 Code [id number] DO JESUS Marcos [facility] [address] [facility],[place] [address] 12/03/2023 14:37:11 12/03/2023 15:10:50 Essential hypertension 15538104 I10 Health Concerns Section Related Observation LastModified by Organization Detai ls LastModified Time None Recorded Concern Status LastModified by Organization Details LastModified Time None Recorded Payers Encounter Date Sequence Insurance Name Policy Number Policy Leyva Covered Member ID Leyva Member ID Guarantor Name 12/03/2023 1 [place] [employer] Zaid Castro [id number] Zaid Castro 12/03/2023 2 [facility] [id number] Zaid Castro [id number] Zaid Castro Notes Date Note Type Note Provider Name and Address Organization Details Recorded Time 12/03/2023 text/html has noticed an elevation of his bp has been consistently higher than normalno cp no sobotherwise feels goodurinating is better Mando Carey DO [address], [place], [address], [facility] 12/03/2023 15:09:53
== END 2024-02-25 10:17 | disposition home or self-care (01) ==
LOC: HO.WFDLDS 10:16
PROVIDERS: Visit Provider Internal Medicine
DX: M35.3 Polymyalgia rheumatica (principal)
CPT/HCPCS: 36415; 85652

== ENCOUNTER 2024-03-09 09:23 | Outpatient (REF) | payer MEDICARE, SELFPAY ==
--- OUTSIDE RECORDS SUMMARY | 2024-03-09 09:29 | XMS_ITS | Data Portability ---
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) MDM MODERATE MUST MEET 2 OUT OF [...] Lab CMP, serum or plasma 2022 023 [facility], [address] [place] [address], [id number], 05/13/2023 14:59:02 CBC 2022 023 [facility], [address] [place] [address], [id number], 11/10/2022 14:25:23 PSA, serum or plasma 2022 023 [facility], [address] [place] [address], [address], 11/10/2022 14:25:23 lipid panel, blood 2022 023 [facility], [address] [place] [address], [id number], 11/10/2022 14:25:23 ESR (erythroc yte sedimenta tion rate), blood 2023 024 [facility], [address] [place] [address], [address], 02/02/2024 11:51:12 ESR (erythroc yte sedimenta tion rate), blood 2023 [facility], [address] [place] [address], [address], 02/09/2024 11:29:45 ESR (erythroc yte sedimenta tion rate), blood 2023 [facility], [address] [place] [address], [address], 02/09/2024 11:29:45 ESR (erythroc yte sedimenta tion rate), blood 2023 [facility], [address] [place] [address], [id number], 02/28/2024 11:10:46 ESR (erythroc yte sedimenta tion rate), blood 2023 [facility], [address] [place] [address], [id number], 02/28/2024 11:10:46 Referral None recorded. Procedures None recorded. Surgeries None recorded. Imaging US, echocardi ogram, transthor acic, complete, w/ color flow 2023 [email or web address] Not available 01/26/2024 08:31:38 Medication Orders amlodipin e 5 mg tablet 2023 [facility], [address] [place], [address], 01/25/2024 10:51:27 prednison e 10 mg tablet 2023 [facility], [address] [place], [address], 01/25/2024 11:29:36 zolpidem 10 mg tablet 2023 024 [facility], [address] [place], [address], 02/14/2024 15:00:54 prednison e 10 mg tablet 2023 024 [facility], [address] [place], [address], 02/14/2024 15:00:44 Patient TargetsNo targets recorded. Patient Instructions Encounter Date Encounter Id Patient Instructions Last Modified By Organization Details Last Modified Time 01/25/2024 [id number] polymyalgia rheumatica: care instructions Not available 01/25/2024 11:29:34 02/14/2024 [id number] insomnia: care instructions Not available 02/14/2024 15:00:26 polymyalgia rheumatica: care instructions Not available 02/14/2024 14:55:16 Reason for Referral None Reported. Results Created Date Observation Date Name Description Value Unit Range Abnormal Flag Note LastModifiedBy Organization Detail LastModifiedTime 10/04/19 24 10/04/2023 XR, chest , 2 view No observ ation record ed. [email or web address] [address], [address], 10/08/2023 08:42:28 02/19/20 24 02/18/2024 US, echoc ardio gram, trans thora cic, compl ete, w/ color flow No observ ation record ed. [email or web address] [address], [address], 02/21/2024 11:00:44 Result Notes None recorded. Problems Name Problem SNOMED Code Status Onset Date Resolution Date Notes Provider Name and Address Organization Details Recorded Time Essential hypertens ion 80824497 Active 2017 [facility] 8 10:35:22 Hyperchol esterolem ia 57392506 Active 2017 [facility] 8 10:35:27 Benign prostatic hyperplas ia 193735472 Active 2017 [facility] 8 10:35:31 Diverticu litis 298763526 [facility] 10:[facility] Acute sinusitis 20645111 Active 2022 JULISSA KRAUS [address] [place] [address], [address], [facility] Internal [facility] 3 12:05:10 COVID-19 870706634 Active 2022 Mando Carey [address], [address], [facility] 3 14:54:04 Post-acut e COVID-19 4007419549 Active 2022 Mando Carey DO [address] [place] [address], [address], [facility] 3 14:54:31 Pneumonia caused by SARS-CoV- 2 309970372437 478425 Active 2022 Mando Carey DO [address] [place] [address], [address], [facility] 3 14:55:45 Cough 59055724 Active 2023 Mando Carey DO [address] [place] [address], [address], [facility] 4 16:38:30 Fever 991494032 Active 2023 Mando Carey DO [address] [place] [address], [address], [facility] 4 11:58:49 Polymyalg ia rheumatic a 64886232 Active 2023 Mando Carey DO [address] [place] [address], [address], [facility] 4 11:26:42 Dyspnea on exertion 01155242 Active 2023 Mando Carey, DO [address] [place], [address], [facility] 4 11:34:02 Insomnia 356583892 Active 2023 Mando Carey DO [address] [place], [address], [facility] 4 14:59:21 Cervical arthritis 949119954 Active 2017 Mando Carey, [address] [place], [address], [facility] 8 11:04:29 Notes:gerd Problem Notes None recorded. Procedures Surgical History Date Name Laterality Status Provider Name and Address Organization Details Recorded Time 08/03/19 15 Colonoscopy completed Mando Carey, [address] [place] [address], [phone], [facility] 11/23/2017 15:13:02 Imaging Results Imaging Date Name Status LastModified by Organiz ation Details LastModified Time 10/04/2023 XR, chest, 2 view completed [email or web address] [address], [address], 10/08/2023 08:42:28 02/18/2024 US, echocardiog jenn, transthorac ic, complete, w/ color flow completed [email or web address] [address], [address], 02/21/2024 11:00:44 Procedure Notes None recorded. Medical [...] capsule,del ayed release TAKE 1 CAPSULE DAILY 2023 active Not Available Not Available Not Avai lable Aspir-81 mg tablet,neela yed release Take 1 tablet every day by oral route. active Not Available Not Available No t Available levofloxaci n 500 mg tablet TAKE 1 TABLET BY MOUTH EVERY DAY FOR 7 DAYS. 01/24 completed Not Available Not Available Not Available zolpidem 10 mg tablet TAKE 1 TABLET BY MOUTH EVERY DAY NEEDED active Not Available Not Available No t [...] Not Available Not Available Fluzone High-Dose Quad 2019- (PF) 240 mcg/0.7 mL IM syringe [facility]ARM[facility] 01/22 completed Not Available Not Available Not Available Vitals Date Recorded Body height Body mass index (BMI) Body weight Heart rate Oxygen saturation Oxygen saturation in Arterial blood by Pulse oximetry Systolic blood pressure Diastolic blood pressure Provider Name and Address Organization Details Last Updated DateTime 3 175.26 cm 30.4 kg/m2 37559.0 3 g 85 /min 96 % 96 % 140 mm[Hg] 80 mm[Hg] [facility] 3 14:00:53 Date Recorded Body height Body mass index (BMI) Body weight Heart rate Oxygen saturation Oxygen saturation in Arterial blood by Pulse oximetry Systolic blood pressure Diastolic blood pressure Provider Name and Address Organization Details Last Updated DateTime 4 175.26 cm 30.1 kg/m2 10645.8 4 g 78 /min 96 % 96 % 160 mm[Hg] 78 mm[Hg] [facility] 4 14:45:23 Date Recorded Body height Body mass index (BMI) Body weight Heart rate Oxygen saturation Oxygen saturation in Arterial blood by Pulse oximetry Systolic blood pressure Diastolic blood pressure Provider Name and Address Organization Details Last Updated DateTime 4 175.26 cm 29.7 kg/m2 06757.0 7 g 97 /min 97 % 97 % 146 mm[Hg] 86 mm[Hg] Angel Martin [facility] 4 10:53:10 Date Recorded Body height Body mass index (BMI) Body weight Heart rate Oxygen saturation Oxygen saturation in Arterial blood by Pulse oximetry Systolic blood pressure Diastolic blood pressure Provider Name and Address Organization Details Last Updated DateTime 4 175.26 cm 29.5 kg/m2 23720.4 7 g 100 /min 98 % 98 % 144 mm[Hg] 74 mm[Hg] [facility] 4 14:37:07 Social History Question Answer Notes LastModified by Organizat ion Details LastModified Time Tobacco Smoking Status Former Smoker Not Available [facility] 01/23/2020 03:36:24 What Was The Date Of Your Most Recent Tobacco Screening? 02/14/2024 [email or web address] Information not available 02/14/2024 Do You Or [...] PCV 13 8 completed Mando Carey DO [address] [place], [address], [facility] 12/31/2017 09:32:36 Influenza, split virus, quadrivalent, preservative 8 completed Mando Carey DO [address] [place], [address], [facility] 12/31/2017 09:32:44 influenza, unspecified formulation 2 completed Christianne ham [facility] 05/15/2022 14:28:14 Td (adult) 2 completed Soheila ham [facility] 03/18/2018 12:07:16 zoster live 5 completed Soheila ham [facility] 03/18/2018 12:07:45 Influenza, split virus, quadrivalent, preservative 9 completed Opal ham [facility] 11/30/2018 08:02:18 Influenza, split virus, quadrivalent, preservative 0 completed Opal ham [facility] 01/23/2020 13:29:57 COVID-19, mRNA, LNP-S, PF, 100 mcg/0.5mL dose or 50 mcg/0.25mL dose 1 completed Soheila ham [facility] 08/05/2020 15:50:51 COVID-19, mRNA, LNP-S, PF, 100 mcg/0.5mL dose or 50 mcg/0.25mL dose 1 completed Soheila ham [facility] 08/06/2020 15:04:10 Past Encounters Encounter ID Performer Location Encounter Start Date Encounter Closed Date Diagnosis/Indication Diagnosis SNOMED-CT Code Diagnosis ICD10 Code [id number] Mando Carey DO [facility] [address] [facility] [address] 08/23/2017 10:34:37 08/23/2017 16:08:10 Hypercholesterolemia 80396192 E78.00 Essential hypertension 61155740 I10 Benign pro static hyperplasia 894513136 N40.[id number] [facility] [address] [place] [address] 02/23/2018 08:52:52 02/23/2018 12:28:31 Adult health examination 989177506 Z00.00 Hypercholesterolemia 136 29905 E78.00 Essential hypertension 75441824 I10 [id number] [facility] [address] [place] [address] 03/18/2018 11:43:54 03/18/2018 12:36:31 Essential hypertension 35950168 I10 Hypercholesterolemia 136 67913 E78.00 Gastroesop hageal reflux disease 911534853 K21.[id number] [facility] [address] [address] 07/19/2018 15:40:04 07/20/2018 09:08:28 Essential hypertension 15511038 I10 Hypercholesterolemia 136 97627 E78.00 Abdominal aortic aneurysm screening 576863879 Z13.6 Hepatitis C screening 41 0753987 Z11.59 Gastroesop hageal reflux disease 550046935 K21.[id number] [facility] [address] [place] [address] 02/06/2019 14:49:05 02/06/2019 15:44:53 Essential hypertension 34303940 I10 Hypercholesterolemia 136 90158 E78.00 Gastroesop hageal reflux disease 114881462 K21.9 Benign pro static hyperplasia 140715859 N40.0 Diverticulitis 742275083 K57.[id number] [facility] [address] [place] [address] 08/07/2019 13:57:10 08/07/2019 14:40:35 Essential hypertension 07833682 I10 Benign pro static hyperplasia 851359073 N40.0 Diverticulitis 631728770 K57.92 Cervical arthritis 24050 1000 M46.92 Hypercholesterolemia 136 13815 [address]78.[id number] [facility] [address] [facility] [place] [address] 01/23/2020 13:21:38 01/23/2020 14:29:23 Essential hypertension 12402355 I10 Gastroesop hageal reflux disease 045252022 K21.[id number] [facility] [address] [place] [address] [place] [address] 08/06/2020 14:53:52 08/06/2020 15:37:54 Essential hypertension 21183368 I10 Benign pro static hyperplasia 556088123 N40.0 Hypercholesterolemia 136 81076 E78.00 Gastroesop hageal reflux disease 926107452 K21.[id number] [facility] [address] [place] [address] [place] [address] 03/03/2021 08:24:29 03/03/2021 16:20:26 Cervical arthritis 059622236 M46.92 Essential hypertension 74088521 I10 Hypercholesterolemia 136 [address]29[address]78.[id number] [facility] [address] [place] [address] 08/08/2021 13:53:47 08/12/2021 11:27:50 Essential hypertension 69038646 I10 Hypercholesterolemia 136 38902 E78.00 Gastroesop hageal reflux disease 145287055 K21.9 Advance care planning 71 5908849 Z71.89 Cervical arthritis 76146 [id number] [facility] [address] [place] [address] [place] [address] 11/03/2021 15:28:58 11/03/2021 16:21:25 Essential hypertension 19283937 I10 Cervical arthritis 88232 1000 M46.92 Gastroesop hageal reflux disease 466222443 K21.9 [id number] KONSTANTIN TURNER [facility] [address] [place] [address] [place] [address] 05/04/2022 09:28:22 05/04/2022 13:31:21 Acute sinusitis 55535837 J01.[id number] [facility] [address] [place] [address] [place] [address] 05/15/2022 14:07:00 05/15/2022 16:05:57 Essential hypertension 54732482 I10 Post-acute COVID-19 1119 498374 U09.9 Pneumonia caused by SARS-CoV-2 0670689028 47802175 J12.82 Cervical arthritis 59791 [id number] [facility] [address] [place] [address] [place] [address] 11/10/2022 13:54:37 11/10/2022 14:37:45 Benign prostatic hyperplasia 882113662 N40.0 Essential hypertension 11249166 I10 Hypercholesterolemia 136 [address]78[id number] [facility] [address] [place] [address] [place] [address] 05/17/2023 08:30:45 05/17/2023 16:37:14 Benign prostatic hyperplasia 219304946 N40.0 Essential hypertension 92426309 I10 Hypercholesterolemia 136 [address]78[id number] [facility] [address] [place] [address] [place] [address] 12/03/2023 14:37:11 12/03/2023 15:10:50 Essential hypertension 35940610 I10 [id number] [facility] [address] [place] [address] [place] [address] 01/25/2024 10:42:42 01/25/2024 11:47:58 Depression screening 348430905 Z13.31 Active or passive immunization 217358018 Z23 Essential hypertension 76082421 I10 Polymyalgi a rheumatica 79596423 M35.3 Dyspnea on exertion 6084 [address]06.[id number] [facility] [address] [place] [address] [place] [address] 02/14/2024 14:22:44 02/14/2024 15:04:32 Essential hypertension 24460513 I10 Hypercholesterolemia 136 37603 E78.00 Polymyalgi a rheumatica 12955518 M35.3 Insomnia 735538595 G47.0 9 Health Concerns Section Related Observation LastModified by Organization Detai ls LastModified Time None Recorded Concern Status LastModified by Organization Details LastModified Time None Recorded Advance Directives Directive None Recorded Payers Encounter Date Sequence Insurance Name Policy Number Policy Leyva Covered Member ID Leyva Member ID Guarantor Name 11/10/2022 1 [place] [employer] [place] [id number] [place] 11/10/2022 2 [place] [id number] Zaid E [place] [id number] Zaid [place] 05/17/2023 1 [place] Zaid E [place] [id number] 2 [place]aid [place] 05/17/2023 2 [place] [id number] Zaid E Matthew [id number] Zaid [place] 12/03/2023 1 [place] Zaid E Matthew [id number] 2 [place]aid [place] 12/03/2023 2 [place] [id number] Zaid E Matthew [id number] Zaid Matthew 01/25/2024 1 [place] Zaid E Matthew [id number] 2 [place]aid [place] 01/25/2024 2 [place] [id number] Zaid E [place] [id number] Zaid [place] 02/14/2024 1 [place] Zaid E Matthew [id number] 2 [place]aid [place] 02/14/2024 2 [place] [id number] Zaid E [place] [id number] Zaid [place] Notes Date Note Type Note Provider Name a nd Address Organization Details Recorded Time 3 text/html here for rechk and is doing welldoing good and not having any issue sno cp no sobsleep is fairappetite ofk \bowels okbladder is ok Mando Carey, DO [address] [place], [address], [facility] 11/10/2022 14:21:32 4 text/html patient is evaluated via tele/video assessment per patient consentduring current pandemic [id number] has been doing ok overallnot checking his bpno cp no sobstates had URI for the last 2 weeks finally feeling bettercough goneno abd pain bowels okbladder oksleep is goodhas lost 15 lbs by watching his carbs Mando Carey DO [address] [place], [address], [facility] 05/17/2023 14:26:00 4 text/html has noticed an elevation of his bp has been consistently higher than normalno cp no sobotherwise feels goodurinating is better Mando Carey DO [address] [place], [address], [facility] 12/03/2023 15:09:53 4 text/html her=e has been feeling lousy like he has a fever ( he doesnt)has been having pain in his musclesand all in his upper shoulders and u[[er arms and neck very sore tired and run down feeling Mando Carey DO [address] [place] [address], [address], [facility] 01/25/2024 11:34:41 4 text/html here for recjk of pmr doing fine no sx just is not able to sleepfeels great but having a hard time sleeping usus every other nightesr was 73 after pred down to 7 then 2all myalgias are goneprob is not sleepingtoherwise states feels great Mando Carey DO [address] [place], [address], [facility] 02/14/2024 15:02:29
--- OUTSIDE RECORDS SUMMARY | 2024-03-09 09:29 | XMS_ITS | Continuity of Care Document ---
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 Procedures None recorded. Surgeries None recorded. Imaging US, echocardi ogram, transthor acic, complete, w/ color flow 2023 [email or web address] Not available 01/26/2024 08:31:38 Medication Orders prednison e 10 mg tablet 2023 [id number], [address] [place], [address], 01/25/2024 11:29:36 Patient TargetsNo targets recorded. Patient Instructions Encounter Date Encounter Id Patient Instructions Last Modified By Organization Details Last Modified Time 01/25/2024 [id number] polymyalgia rheumatica: care instructions Not available 01/25/2024 11:29:34 Reason for Referral None Reported. Results Created Date Observation Date Name Description Value Unit Range Abnormal Flag Note LastModifiedBy Organization Detail LastModifiedTime 02/19/20 24 02/18/2024 US, echoc ardio gram, trans thora cic, compl ete, w/ color flow No observ ation record ed. [email or web address] [address], [address], 02/21/2024 11:00:44 Result Notes None recorded. Problems Name Problem SNOMED Code Status Onset Date Resolution Date Notes Provider Name and Address Organization Details Recorded Time Essential hypertens ion 32689149 Active 2017 [facility] [place] [facility] 8 10:35:22 Hyperchol esterolem ia 76059800 Active 2017 So[facility] ham [facility] 8 10:35:27 Benign prostatic hyperplas ia 434419221 Active 2017 Soheila ham [place] [facility] Internal Medicine 8 10:35:31 Diverticu litis 088600974 [facility] 8 10:35:41 Acute sinusitis 26926866 Active 2022 JULISSA KRAUS [address] [place] [address], [address], [facility] Medicine 3 12:05:10 COVID-19 630172568 Active 2022 Mando Carey, DO [address] [place] [address], [address], [facility] 3 14:54:04 Post-acut e COVID-19 0390829564 Active 2022 Mando Carey DO [address] [place] [address], [address], [facility] 3 14:54:31 Pneumonia caused by SARS-CoV- 2 842307750511 864280 Active 2022 Mando Carey DO [address] [place] [address], [address], [facility] 3 14:55:45 Cough 18302861 Active 2023 Mando Carey DO [address] [place] [address], [address], [facility] 4 16:38:30 Fever 635116033 Active 2023 Mando Carey DO [address] [place] [address], [address], [facility] 4 11:58:49 Polymyalg ia rheumatic a 81632875 Active 2023 Mando Carey DO [address] [place] [address], [address], [facility] 4 11:26:42 Dyspnea on exertion 37819769 Active 2023 Mando Carey DO [address] [place] [address], [address], [facility] 4 11:34:02 Insomnia 991300382 Active 2023 Mando Duran DO [address] [place], [address], [facility] 4 14:59:21 Cervical arthritis 412460482 Active 2017 Mando Duran DO [address] [place], [address], [facility] 8 11:04:29 Notes:gerd Problem Notes None recorded. Procedures Surgical History Date Name Laterality Status Provider Name and Address Organization Details Recorded Time 08/03/19 15 Colonoscopy completed Mando Duran DO [address] [place], [address], [facility] 11/23/2017 15:13:02 Imaging Results [...] Updated DateTime 4 175.26 cm 29.7 kg/m2 29480.0 7 g 97 /min 97 % 97 % 146 mm[Hg] 86 mm[Hg] [facility] 4 10:53:10 Social History Question Answer Notes LastModified by Organizat ion Details LastModified Time Tobacco Smoking Status Former Smoker Not Available [facility] 01/23/2020 03:36:24 What Was The Date Of Your Most Recent Tobacco Screening? 02/14/2024 [email or web address] Information not available 02/14/2024 Do You Or [...] 13 8 completed Mando Carey DO [address] [place], [address], [facility] 12/31/2017 09:32:36 Influenza, split virus, quadrivalent, preservative 8 completed Mando Carey DO [address] [facility], [place], [address], [facility] 12/31/2017 09:32:44 influenza, unspecified formulation 2 [facility] 14:28:14 Td (adult) 2 [facility]2018 12:07:16 zoster live 5 [facility] 03/18/2018 12:07:45 Influenza, split virus, quadrivalent, preservative 9 completed Opal Stallings [facility] 11/30/2018 08:02:18 Influenza, split virus, quadrivalent, preservative 0 completed Opal Stallings [facility] 01/23/2020 13:29:57 COVID-19, mRNA, LNP-S, PF, 100 mcg/0.5mL dose or 50 mcg/0.25mL dose 1 completed Soheila ham [facility] 08/05/2020 15:50:51 COVID-19, mRNA, LNP-S, PF, 100 mcg/0.5mL dose or 50 mcg/0.25mL dose 1 completed Soheila ham [facility] 08/06/2020 15:04:10 Past Encounters Encounter ID Performer Location Encounter Start Date Encounter Closed Date Diagnosis/Indication Diagnosis SNOMED-CT Code Diagnosis ICD10 Code [id number] Mando Carey DO [facility] [address] [facility] [place] [address] 01/25/2024 10:42:42 01/25/2024 11:47:58 Depression screening 996410918 Z13.31 Active or passive immunization 880428226 Z23 Essential hypertension 71553862 I10 Polymyalgi a rheumatica 19047044 M35.3 Dyspnea on exertion 6084 5006 R06.09 Health Concerns Section Related Observation LastModified by Organization Detai ls LastModified Time None Recorded Concern Status LastModified by Organization Details LastModified Time None Recorded Payers Encounter Date Sequence Insurance Name Policy Number Policy Leyva Covered Member ID Leyva Member ID Guarantor Name 01/25/2024 1 [place] [employer] [place] Zaid Castro [id number] Zaid Castro 01/25/2024 2 [place] [id number] Zaid Castro [id number] Zaid Castro Notes Date Note Type Note Provider Name a nd Address Organization Details Recorded Time 01/25/2024 text/html her=e has been feeling lousy like he has a fever ( he doesnt)has been having pain in his musclesand all in his upper shoulders and u[[er arms and neck very sore tired and run down feeling Mando Carey, [address] [facility], [place], [address], [facility] 01/25/2024 11:34:41
--- OUTSIDE RECORDS SUMMARY | 2024-03-09 09:29 | XMS_ITS | Continuity of Care Document ---
Author Organization [facility], [facility] Address [address] [place] [address] Assessment No assessment recorded. Plan of Treatment Reminders Order Date Submit Date Provider Last Modified By Organization Details Last Modified Time Details Appointments FOLLOW UP 15 2023 11:15A M DR CAREY Not available Not available Not available Lab ESR (erythroc yte sedimenta tion rate), blood 2023 [facility], [address] [place] [address], [address], 02/28/2024 11:10:46 ESR (erythroc yte sedimenta tion rate), blood 2023 024 [facility], [address] [place] [address], [address], 02/28/2024 11:10:46 Referral None recorded. Procedures None recorded. Surgeries None recorded. Imaging None recorded. Medication Orders zolpidem 10 mg tablet 2023 024 [id number], [address] [place], [address], 02/14/2024 15:00:54 prednison e 10 mg tablet 2023 024 [facility][id number], [address] [place], [address], 02/14/2024 15:00:44 Patient TargetsNo targets recorded. Patient Instructions Encounter Date Encounter Id Patient Instructions Last Modified By Organization Details Last Modified Time 02/14/2024 [id number] insomnia: care instructions Not available 02/14/2024 15:00:26 polymyalgia rheumatica: care instructions Not available 02/14/2024 14:55:16 Reason for Referral None Reported. Results Created Date Observation Date Name Description Value Unit Range Abnormal Flag Note LastModifiedBy Organization Detail LastModifiedTime 02/19/20 24 02/18/2024 US, echoc ardio gram, trans thora cic, compl ete, w/ color flow No observ ation record ed. [email or web address] [address], [address], 02/21/2024 11:00:44 Result Notes None recorded. Problems Name Problem SNOMED Code Status Onset Date Resolution Date Notes Provider Name and Address Organization Details Recorded Time Essential hypertens ion 91807380 Active 2017 Soheila ham [facility] Internal Medicine 8 10:35:22 Hyperchol esterolem ia 07335509 Active 2017 Soheila ham [facility] Internal Medicine 8 10:35:27 Benign prostatic hyperplas ia 945516314 Active 2017 Soheila ham [facility] 8 10:35:31 Diverticu litis 468434847 Active 2017 Soheila ham [facility] 8 10:35:41 Acute sinusitis 82977857 Active 2022 JULISSA KRAUS [address] [place] [address], [address], [facility] Internal Medicine 3 12:05:10 COVID-19 699756377 Active 2022 Mando Carey DO [address] [place] [address], [address], [facility] 3 14:54:04 Post-acut e COVID-19 1840088453 Active 2022 Mando Carey DO [address] [place] [address], [address], [facility] 3 14:54:31 Pneumonia caused by SARS-CoV- 2 408253117665 839239 Active 2022 Mando Carey DO [address] [place] [address], [address], [facility] 3 14:55:45 Cough 38383972 Active 2023 Mando Carey DO [address] [place] [address], [address], [facility] Internal [facility] 4 16:38:30 Fever 554098740 Active 2023 Mando Carey DO [address] [place] [address], [address], [facility] 4 11:58:49 Polymyalg ia rheumatic a 56984814 Active 2023 Mando Carey DO [address] [place] [address], [address], [facility] Internal [facility] 4 11:26:42 Dyspnea on exertion 48628244 Active 2023 Mando Carey DO [address] [place] [address], [address], [facility] 4 11:34:02 Insomnia 640077772 Active 2023 Mando Carey DO [address] [place] [address], [address], [facility] 4 14:59:21 Cervical arthritis 002102583 Active 2017 Mando Carey DO [address] [place] [address], [address], [facility] 8 11:04:29 Notes:gerd Problem Notes None recorded. Procedures Surgical History Date Name Laterality Status Provider Name and Address Organization Details Recorded Time 08/03/19 15 Colonoscopy completed Mando Carey DO [address] [place] [address], [address], [facility] 11/23/2017 15:13:02 Imaging [...] (PF) 240 mcg/0.7 mL IM syringe [facility] 01/22 completed Not Available Not Available Not Available Vitals Date Recorded Body height Body mass index (BMI) Body weight Heart rate Oxygen saturation Oxygen saturation in Arterial blood by Pulse oximetry Systolic blood pressure Diastolic blood pressure Provider Name and Address Organization Details Last Updated DateTime 4 175.26 cm 29.5 kg/m2 69675.4 7 g 100 /min 98 % 98 % 144 mm[Hg] 74 mm[Hg] Chula Rojas [facility] Medicine 4 14:37:07 Social History Question Answer Notes LastModified by Organizat ion Details LastModified Time Tobacco Smoking Status Former Smoker Not Available [email or web address] 01/23/2020 03:36:24 What Was The Date Of Your Most Recent Tobacco Screening? 02/14/2024 [email or web address] Information not available 02/14/2024 Do You Or [...] PCV 13 8 completed Mando Carey DO [address] [place] [address], [address], [facility] 12/31/2017 09:32:36 Influenza, split virus, quadrivalent, preservative 8 completed Mando Carey DO [address] [place] [address], [address], [facility] 12/31/2017 09:32:44 influenza, unspecified formulation 2 completed Christianne ham [facility] 05/15/2022 14:28:14 Td (adult) 2 completed Soheila ham [facility] 03/18/2018 12:07:16 zoster live 5 completed Soheila ham [facility] 03/18/2018 12:07:45 Influenza, split virus, quadrivalent, preservative 9 completed Opal ham [facility] 11/30/2018 08:02:18 Influenza, split virus, quadrivalent, preservative 0 completed Opal ham [facility] 01/23/2020 13:29:57 COVID-19, mRNA, LNP-S, PF, 100 mcg/0.5mL dose or 50 mcg/0.25mL dose 1 completed Soheila ham [facility] 08/05/2020 15:50:51 COVID-19, mRNA, LNP-S, PF, 100 mcg/0.5mL dose or 50 mcg/0.25mL dose 1 [facility] 15:04:10 Past Encounters Encounter ID Performer Location Encounter Start Date Encounter Closed Date Diagnosis/Indication Diagnosis SNOMED-CT Code Diagnosis ICD10 Code [id number] [facility] [address] [facility], [place] [address] 01/25/2024 10:42:42 01/25/2024 11:47:58 Depression screening 395856394 Z13.31 Active or passive immunization 723983530 Z23 Essential hypertension 21575594 I10 Polymyalgi a rheumatica 24787463 M35.3 Dyspnea on exertion 6084 5006 R06.09 [id number] Mando Carey [facility] Internal Medicine [address] [facility], [place] [address] 02/14/2024 14:22:44 02/14/2024 15:04:32 Essential hypertension 45739500 I10 Hypercholesterolemia 136 87752 E78.00 Polymyalgi a rheumatica 90828095 M35.3 Insomnia 925865188 G47.0 9 Health Concerns Section Related Observation LastModified by Organization Detai ls LastModified Time None Recorded Concern Status LastModified by Organization Details LastModified Time None Recorded Payers Encounter Date Sequence Insurance Name Policy Number Policy Leyva Covered Member ID Leyva Member ID Guarantor Name 02/14/2024 1 [place] [employer] Zaid Castro [id number] Zaid Castro 02/14/2024 2 [place]) [id number] Zaid Castro [id number] Zaid Castro Notes Date Note Type Note Provider Name a nd Address Organization Details Recorded Time 4 text/html here for recjk of pmr doing fine no sx just is not able to sleepfeels great but having a hard time sleeping usus every other nightesr was 73 after pred down to 7 then 2all myalgias are goneprob is not sleepingtoherwise states feels great Mando Carey, DO [address] [facility], [place], [address], [facility] 02/14/2024 15:02:29
[2024-03-09 11:56] LABS: Erythrocyte Sedimentation Rate 5 MM/HR (0-15)
== END 2024-03-09 09:24 | disposition home or self-care (01) ==
LOC: HO.WFDLDS 09:23
PROVIDERS: Visit Provider Internal Medicine
DX: M35.3 Polymyalgia rheumatica (principal)
CPT/HCPCS: 36415; 85652

== ENCOUNTER 2024-03-29 08:55 | Outpatient (REF) | payer MEDICARE, SELFPAY ==
--- OUTSIDE RECORDS SUMMARY | 2024-03-29 09:02 | XMS_ITS | Continuity of Care Document ---
Author Organization [facility], [facility] Address [address] [place] [address] [place] [address] Assessment No assessment recorded. Plan of Treatment Reminders Order Date Submit Date Provider Last Modified By Organization Details Last Modified Time Details Appointments FOLLOW UP 15 2024 12:00P M DR CAREY Not available Not available Not available Lab None recorded . Referral None recorded . Procedures None recorded . Surgeries None recorded . Imaging None recorded . Medication Orders None recorded . Patient TargetsNo targets recorded. Patient Instructions Encounter Date Encounter Id Patient Instructions Last Modified By Organization Details Last Modified Time 02/14/2024 [id number] insomnia: care instructions Not available 02/14/2024 15:00:26 polymyalgia rheumatica: care instructions Not available 02/14/2024 14:55:16 Reason for Referral None Reported. Results Created Date Observation Date Name Description Value Unit Range Abnormal Flag Note LastModifiedBy Organization Detail LastModifiedTime 02/19/20 24 02/18/2024 US, echoc ardio gram, trans thora cic, compl ete, w/ color flow No observ ation record ed. [email or web address] [address], [address], 02/21/2024 11:00:44 Result Notes None recorded. Problems Name Problem SNOMED Code Status Onset Date Resolution Date Notes Provider Name and Address Organization Details Recorded Time Essential hypertens ion 37073727 Active 2017 [facility] 8 10:35:22 Hyperchol esterolem ia 97291537 Active 2017 [facility]NA [facility] 8 10:35:27 Benign prostatic hyperplas ia 752235807 Active 2017 [facility] 8 10:35:31 Diverticu litis 653685209 Active 2017 [facility]ila [facility] 8 10:35:41 Acute sinusitis 38391566 Active 2022 JULISSA KRAUS [address] [place] [address], [address], [facility] Internal [facility] 3 12:05:10 COVID-19 539857144 Active 2022 Mando Carey [address], [address], [facility] 3 14:54:04 Post-acut e COVID-19 6783426348 Active 2022 Mando Carey DO [address] [place] [address], [address], [facility] 3 14:54:31 Pneumonia caused by SARS-CoV- 2 418557614603 571479 Active 2022 Mando Carey DO [address] [place] [address], [address], [facility] 3 14:55:45 Cough 97482897 Active 2023 Mando Carey DO [address] [place] [address], [address], [facility] 4 16:38:30 Fever 435873195 Active 2023 Mando Carey DO [address] [place] [address], [address], [facility] 4 11:58:49 Polymyalg ia rheumatic a 66908005 Active 2023 Mando Carey DO [address] [place] [address], [address], [facility] 4 11:26:42 Dyspnea on exertion 38220947 Active 2023 Mando Carey, DO [address] [place], [address], [facility] 4 11:34:02 Insomnia 699472742 Active 2023 Mando Carey DO [address] [place], [address], [facility] 4 14:59:21 Cervical arthritis 608867394 Active 2017 Mando Carey, DO [address] [place], [address], [facility] 8 11:04:29 Notes:gerd Problem Notes None recorded. Procedures Surgical History Date Name Laterality Status Provider Name and Address Organization Details Recorded Time 08/03/19 15 Colonoscopy completed Mando Carey [address] [place] [address], [address], [facility] 11/23/2017 15:13:02 Imaging Results None recorded. Procedure Notes None recorded. Medical Equipment None Reported. Allergies No known drug allergies Medications Name Sig Start Date Stop Date Status Note LastModified by Organization Details LastModified Time atorvastati n 40 mg tablet TAKE 1 TABLET DAILY active Not Available Not Available No t Available prednisone 10 mg tablet TAKE 4 TABLETS EVERY DAY BY ORAL ROUTE 2023 active Not Available Not Available Not Avai lable doxycycline hyclate 100 mg capsule 07/19 completed [...] 1 TABLET BY MOUTH EVERY DAY NEEDED 2023 active Not Available Not Available Not Avai lable methylpredn isolone 4 mg tablets in a [...] Updated DateTime 4 175.26 cm 29.5 kg/m2 97621.4 7 g 100 /min 98 % 98 % 144 mm[Hg] 74 mm[Hg] [facility] 4 14:37:07 Social History Question Answer Notes LastModified by Organizat ion Details LastModified Time Tobacco Smoking Status Former Smoker Not Available [email or web address] 01/23/2020 03:36:24 What Was The Date Of Your Most Recent Tobacco Screening? 03/10/2024 [email or web address] Information not available 03/10/2024 Do You Or Have You Ever Used Any Other Forms Of Tobacco Or Nicotine? No [email or web address] Information not available 08/08/2021 Sex: Unknown Functional Status None recorded. Mental Status None recorded. Family History Nothing Reported. Medical History No medical history recorded. Immunizations Vaccine Type Date Status Note Provider Nam e and Address Organization Details Recorded Time Pneumococcal conjugate PCV 13 8 completed Mando Carey, [address], [address], [facility] 12/31/2017 09:32:36 Influenza, split virus, quadrivalent, preservative 8 completed Mando Carey, [address] [place], [address], [facility] 12/31/2017 09:32:44 influenza, unspecified formulation 2 [facility]2022 14:28:14 Td (adult) 2 completed [facility] 03/18/2018 12:07:16 zoster live 5 completed [facility] 03/18/2018 12:07:45 Influenza, split virus, quadrivalent, preservative 9 completed Opal Stallings [facility] 11/30/2018 08:02:18 Influenza, split virus, quadrivalent, preservative 0 [facility] 01/23/2020 13:29:57 COVID-19, mRNA, LNP-S, PF, 100 mcg/0.5mL dose or 50 mcg/0.25mL dose 1 completed Soheila ham [facility] 08/05/2020 15:50:51 COVID-19, mRNA, LNP-S, PF, 100 mcg/0.5mL dose or 50 mcg/0.25mL dose 1 jess ham [facility] 08/06/2020 15:04:10 Past Encounters Encounter ID Performer Location Encounter Start Date Encounter Closed Date Diagnosis/Indication Diagnosis SNOMED-CT Code Diagnosis ICD10 Code Diagnosis Note [id number] Mando Carey DO [facility] [address] [facility],[place] [address] 01/25/2024 10:42:42 01/25/2024 11:47:58 Depression screening 103788648 Z13.31 neg Active or passive immunization 130823376 Z23 utd Essential hypertension 55601457 I10 running now with sys in 140's Polymyalgi a rheumatica 22604478 M35.3 Dyspnea on exertion 6084 5006 R06.09 [id number] Mando Carey DO [facility] [address] [facility],[place] [address] 02/14/2024 14:22:44 02/14/2024 15:04:32 Essential hypertension 97497061 I10 running now with sys in 140's Hypercholesterolemia 136 92898 E78.00 tolerating the atorvastat in and the last LDL is 119 and HDL is 48 Polymyalgi a rheumatica 39832640 M35.3 Insomnia 363056997 G47.0 9 Health Concerns Section Related Observation LastModified by Organization Detai ls LastModified Time None Recorded Concern Status LastModified by Organization Details LastModified Time None Recorded Payers Encounter Date Sequence Insurance Name Policy Number Policy Leyva Covered Member ID Leyva Member ID Guarantor Name 02/14/2024 1 [place] 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
--- OUTSIDE RECORDS SUMMARY | 2024-03-29 09:02 | XMS_ITS | Continuity of Care Document ---
Author Organization [facility] Internal Medicine, [facility] Internal [facility] Address [address] [place] [address] Assessment Encounter Date Assessment Date Assessment LastModified by Organization Details LastModified Time 01/25/2024 01/25/2024 [id number] [place] [address] (ADMITTING OFFICE ESCORT) MDM MODERATE MUST MEET 2 OUT OF [...] By Organization Details Last Modified Time 01/25/2024 [id number] polymyalgia rheumatica: care instructions Not available 01/25/2024 11:29:34 Reason for Referral None Reported. Results Created Date Observation Date Name Description Value Unit Range Abnormal Flag Note LastModifiedBy Organization Detail LastModifiedTime 11/3002/18/2024 US, echoc ardio gram, trans thora cic, compl ete, w/ color flow No observ ation record ed. [email or web address] [address], [address], 02/21/2024 11:00:44 Result Notes None recorded. Problems Name Problem SNOMED Code Status Onset Date Resolution Date Notes Provider Name and Address Organization Details Recorded Time Essential hypertens ion 93551414 Active 2017 Soheila ham [facility] Internal [facility] 8 10:35:22 Hyperchol esterolem ia 08854461 Active 2017 Soheila ham [facility] 8 10:35:27 Benign prostatic hyperplas ia 453740869 Active 2017 Soheila ham [facility] 8 10:35:31 Diverticu litis 631878708 Active 2017 Soheila ham [facility] 8 10:35:41 Acute sinusitis 14263487 Active 2022 JULISSA KRAUS [address] [place] [address], [phone], [facility] [place] Internal [facility] 3 12:05:10 COVID-19 283808776 Active 2022 Mando Carey DO [address] [place] [address], [phone], [place] [facility] Internal Medicine 3 14:54:04 Post-acut e COVID-19 0888621764 Active 2022 Mando Carey DO [address] [place] [address], [phone], [place] [facility] Internal Medicine 3 14:54:31 Pneumonia caused by SARS-CoV- 2 812071336680 166215 Active 2022 Mando Carey DO [address] [place] [address], [address], [facility] [place] Internal Medicine 3 14:55:45 Cough 59420617 Active 2023 Mando Carey DO [address] [place] [address], [address], [facility] [place] Internal Medicine 4 16:38:30 Fever 346863765 Active 2023 Mando Carey [address] [place] [address], [address], [facility] [place] Internal Medicine 4 11:58:49 Polymyalg ia rheumatic a 71848105 Active 2023 Mando Duran DO Lin [address] [place] [address], [address], [facility] [place] Internal Medicine 4 11:26:42 Dyspnea on exertion 22207497 Active 2023 Mando Duran DO Lin [address] [place] [address], [address], [facility] [place] Internal Medicine 4 11:34:02 Insomnia 344732573 Active 2023 Mando Duran DO Lin [address] [place] [address], [address], [facility] [place] Internal Medicine 4 14:59:21 Cervical arthritis 858294384 Active 2017 Mando Duran Lin [address] [place] [address], [address], [facility] [place] Internal Medicine 8 11:04:29 Notes:gerd Problem Notes None recorded. Procedures Surgical History Date Name Laterality Status Provider Name and Address Organization Details Recorded Time 08/03/19 15 Colonoscopy completed Mando DouglasZoltan EricDO sam [address] [place] [address], [address], [facility] [place] Internal Medicine 11/23/2017 15:13:02 Imaging Results None [...] Updated DateTime 4 175.26 cm 29.7 kg/m2 54178.0 7 g 97 /min 97 % 97 % 146 mm[Hg] 86 mm[Hg] Angel Foreston [facility] Internal Medicine 4 10:53:10 Social History Question [...] conjugate PCV 13 8 completed Mando Carey, [address], [address], [facility] [place] Internal Medicine 12/31/2017 09:32:36 Influenza, split virus, quadrivalent, preservative 8 completed Mando Carey, [address] [place] [address], [address], [facility] [place] Internal [facility] 12/31/2017 09:32:44 influenza, unspecified formulation 2 completed Christianne ham [facility] Internal Medicine 05/15/2022 14:28:14 Td (adult) 2 completed Soheila ham [facility] Internal Medicine 03/18/2018 12:07:16 zoster live 5 completed Soheila ham [facility] Internal [facility] 03/18/2018 12:07:45 Influenza, split virus, quadrivalent, preservative 9 completed Opal ham [facility] Internal Medicine 11/30/2018 08:02:18 Influenza, split virus, quadrivalent, preservative 0 completed Opal ham [facility] Internal Medicine 01/23/2020 13:29:57 COVID-19, mRNA, LNP-S, PF, 100 mcg/0.5mL dose or 50 mcg/0.25mL dose 1 completed Soheila ham [facility] Internal [facility] 08/05/2020 15:50:51 COVID-19, mRNA, LNP-S, PF, 100 mcg/0.5mL dose or 50 mcg/0.25mL dose 1 completed Soheila ham [facility] 08/06/2020 15:04:10 Past Encounters Encounter ID Performer Location Encounter Start Date Encounter Closed Date Diagnosis/Indication Diagnosis SNOMED-CT Code Diagnosis ICD10 Code Diagnosis Note [id number] Mando Carey DO [facility] Internal Medicine [address] [address] 01/25/2024 10:42:42 01/25/2024 11:47:58 Depression screening 468991407 Z13.31 neg Active or passive immunization 941985967 Z23 utd Essential hypertension 48845613 I10 running now with sys in 140's Polymyalgi a rheumatica 31145740 M35.3 Dyspnea on exertion 6084 5006 R06.09 Health Concerns Section Related Observation LastModified by Organization Detai ls LastModified Time None Recorded Concern Status LastModified by Organization Details LastModified Time None Recorded Payers Encounter Date Sequence Insurance Name Policy Number Policy Leyva Covered Member ID Leyva Member ID Guarantor Name 01/25/2024 1 [place] [employer] Zaid Castro [id number] Zaid Casrto 01/25/2024 2 [place] [id number] Zaid Castro [id number] Zaid Castro Notes Date Note Type Note Provider Name a ia Address Organization Details Recorded Time 01/25/2024 text/html her=e has been feeling lousy like he has a fever ( he doesnt)has been having pain in his musclesand all in his upper shoulders and u[[er arms and neck very sore tired and run down feeling Mando Carey DO [address] [place], [address], [facility] 01/25/2024 11:34:41
--- OUTSIDE RECORDS SUMMARY | 2024-03-29 09:02 | XMS_ITS | Continuity of Care Document ---
Author Organization [facility], [facility] Address [address] [place] [address] Assessment No assessment recorded. Plan of Treatment [...] Modified By Organization Details Last Modified Time 03/10/2024 [id number] polymyalgia rheumatica: care instructions Not available 03/10/2024 11:57:23 Reason for Referral None Reported. Results Created Date Observation Date Name Description Value Unit Range Abnormal Flag Note LastModifiedBy Organization Detail LastModifiedTime 02/19/20 24 02/18/2024 US, echoc ardio gram, trans thora cic, compl ete, w/ color flow No observ ation record ed. [email or web address] [address], [address], 02/21/2024 11:00:44 Result Notes None recorded. Problems Name Problem SNOMED Code Status Onset Date Resolution Date Notes Provider Name and Address Organization Details Recorded Time Essential hypertens ion 01433940 Active 2017 [facility] 8 10:35:22 Hyperchol esterolem ia 99721170 Active 2017 [facility] 8 10:35:27 Benign prostatic hyperplas ia 003643110 Active 2017 [facility] 8 10:35:31 Diverticu litis 007743172 [facility] 8 10:35:41 Acute sinusitis 69048832 Active 2022 JULISSA KRAUS [address] [place] [address], [address], [facility] Internal Medicine 3 12:05:10 COVID-19 547406976 Active 2022 Mando Carey, [address], [address], [facility] Internal Medicine 3 14:54:04 Post-acut e COVID-19 2158420772 Active 2022 Mando Carey, [address], [address], [facility] Internal Medicine 3 14:54:31 Pneumonia caused by SARS-CoV- 2 631773233784 150395 Active 2022 Mando Carey, DO [address] [place] [address], [address], [facility] Internal Medicine 3 14:55:45 Cough 94720862 Active 2023 Mando Carey DO [address] [place] [address], [address], [facility] Internal Medicine 4 16:38:30 Fever 004752485 Active 2023 Mando Carey DO [address] [place] [address], [address], [facility] Internal Medicine 4 11:58:49 Polymyalg ia rheumatic a 46465769 Active 2023 Mando Carey DO [address] [place] [address], [address], [facility] Internal Medicine 4 11:26:42 Dyspnea on exertion 75747684 Active 2023 Mando Carey DO [address] [place] [address], [address], [facility] Internal Medicine 4 11:34:02 Insomnia 600438255 Active 2023 Mando Carey DO [address] [place], [address], [facility] Internal Medicine 4 14:59:21 Cervical arthritis 520663150 Active 2017 Mando Carey DO [address] [place], [address], [facility] Internal Medicine 8 11:04:29 Notes:gerd Problem Notes None recorded. Procedures Surgical History Date Name Laterality Status Provider Name and Address Organization Details Recorded Time 08/03/19 15 Colonoscopy completed Mando Carey DO [address] [place] [address], [address], [facility] Internal Medicine 11/23/2017 15:13:02 Imaging Results [...] Updated DateTime 4 175.26 cm 29.5 kg/m2 81776.4 7 g 86 /min 98 % 98 % 148 mm[Hg] 84 mm[Hg] [facility] 4 11:23:22 Social History Question Answer Notes LastModified by [...] PCV 13 8 completed Mando Carey DO [address] [place] [address], [address], [facility] 12/31/2017 09:32:36 Influenza, split virus, quadrivalent, preservative 8 completed Mando Carey DO [address] [place] [address], [address], [facility] 12/31/2017 09:32:44 influenza, unspecified formulation [facility] 14:28:14 [facility]d (adult[facility] 12:07:16 [facility]oster live 5 [facility]2018 12:07:45 Influenza, split virus, quadrivalent, preservative 9 completed Opal Stallings [facility] 11/30/2018 08:02:18 Influenza, split virus, quadrivalent, preservative 0 completed Opal Stallings [facility] 01/23/2020 13:29:57 COVID-19, mRNA, LNP-S, PF, 100 mcg/0.5mL dose or 50 mcg/0.25mL dose 1 completed Soheila ham [facility] 08/05/2020 15:50:51 COVID-19, mRNA, LNP-S, PF, 100 mcg/0.5mL dose or 50 mcg/0.25mL dose 1 jess Lu [facility] 08/06/2020 15:04:10 Past Encounters Encounter ID Performer Location Encounter Start Date Encounter Closed Date Diagnosis/Indication Diagnosis SNOMED-CT Code Diagnosis ICD10 Code Diagnosis Note [id number] Mando Carey DO [facility] Internal Medicine [address] [facility] [place] [address] 02/14/2024 14:22:44 02/14/2024 15:04:32 Essential hypertension 91885451 I10 running now with sys in 140's Hypercholesterolemia 136 08750 E78.00 tolerating the atorvastat in and the last LDL is 119 and HDL is 48 Polymyalgi a rheumatica 95420434 M35.3 Insomnia 715577432 G47.0 9 [id number] Mando Carey DO [facility] Internal Medicine [address] [facility] [place] [address] 03/10/2024 11:06:41 03/10/2024 11:58:41 Polymyalgia rheumatica 66166821 M35.3 30 to 25 for each week decrease by 1/2 tab will see pt again in mar when hes at 13 or 10 Health Concerns Section Related Observation LastModified by Organization Detai ls LastModified Time None Recorded Concern Status LastModified by Organization Details LastModified Time None Recorded Payers Encounter Date Sequence Insurance Name Policy Number Policy Leyva Covered Member ID Leyva Member ID Guarantor Name 03/10/2024 1 [place] [employer] [place] Zaid Castro [id number] Zaid Castro 03/10/2024 2 [place] [id number] Zaid Castro [id number] Zaid Castro Notes Date Note Type Note Provider Name a nd Address Organization Details Recorded Time 03/10/2024 text/html here for rechk and is struggling with the prednisone for the PMR relates taking 30mg now Mando Carey DO [address] [place] [address], [address], [facility] Internal Medicine 03/10/2024 11:57:42
--- OUTSIDE RECORDS SUMMARY | 2024-03-29 09:02 | XMS_ITS | Data Portability ---
Author Organization [facility] Address [address] [place] [address] Assessment Encounter Date Assessment Date Assessment LastModified by Organization Details LastModified Time 05/17/2023 05/17/2023 [address] [place] [address] (MEDICAL DEVICE SALES REPRESENTATIVE) : MDM LOW MUST MEET 2 OF [...] COVERED Not available 05/17/2023 14:25:40 01/25/2024 01/25/2024 [address] [place] [address] (MEDICAL DEVICE SALES REPRESENTATIVE) MDM MODERATE MUST MEET 2 OUT OF [...] (erythroc yte sedimenta tion rate), blood 2023 [facility], [address] [place] [address], [address], 02/28/2024 11:10:46 ESR (erythroc yte sedimenta tion rate), blood 2023 024 [facility], [address] [place] [address], [address], 02/28/2024 11:10:46 ESR (erythroc yte sedimenta tion rate), blood 2023 024 [facility], [address] [place] [address], [address], 02/02/2024 11:51:12 ESR (erythroc yte sedimenta tion rate), blood 2023 024 [facility], [address] [place] [address], [address], 02/09/2024 11:29:45 ESR (erythroc yte sedimenta tion rate), blood 2023 024 [facility], [address] [place] [address], [address], 03/10/2024 11:09:09 ESR (erythroc yte sedimenta tion rate), blood 2023 024 [facility], [address] [place] [address], [address], 03/10/2024 11:09:09 Referral None recorded. Procedures None recorded. Surgeries None recorded. Imaging US, echocardi ogram, transthor acic, complete, w/ color flow 2023 024 [email or web address] Not available 01/26/2024 08:31:38 Medication Orders [facility]em 10 mg tablet 2023 [facility] [address] [place], [address], 02/14/2024 15:00:54 prednison e 10 mg tablet 2023 [facility], [address] [place], [address], 02/14/2024 15:00:44 prednison e 10 mg tablet 2023 [facility] [address] [place], [address], 01/25/2024 11:29:36 amlodipin e 5 mg tablet 2023 024 [facility], [address] [place], [address], 01/25/2024 10:51:27 Patient TargetsNo targets recorded. Patient Instructions Encounter Date Encounter Id Patient Instructions Last Modified By Organization Details Last Modified Time 01/25/2024 [id number] polymyalgia rheumatica: care instructions Not available 01/25/2024 11:29:34 02/14/2024 [id number] insomnia: care instructions Not available 02/14/2024 15:00:26 polymyalgia rheumatica: care instructions Not available 02/14/2024 14:55:16 03/10/2024 [id number] polymyalgia rheumatica: care instructions Not available 03/10/2024 11:57:23 Reason for Referral None Reported. Results Created Date Observation Date Name Description Value Unit Range Abnormal Flag Note LastModifiedBy Organization Detail LastModifiedTime 10/04/19 24 10/04/2023 XR, chest , 2 view No observ ation record ed. [email or web address] [address], [address], 10/08/2023 08:42:28 02/19/2002/18/2024 US, echoc ardio gram, trans thora cic, compl ete, w/ color flow No observ ation record ed. [email or web address] [address], [address], 02/21/2024 11:00:44 Result Notes None recorded. Problems Name Problem SNOMED Code Status Onset Date Resolution Date Notes Provider Name and Address Organization Details Recorded Time Essential hypertens ion 19810014 Active 2017 Soheila ham [facility] 8 10:35:22 Hyperchol esterolem ia 51247367 Active 2017 Soheila ham [facility] 8 10:35:27 Benign prostatic hyperplas ia 405889629 Active 2017 Soheila ham [facility] 8 10:35:31 Diverticu litis 755010325 Active 2017 Soheila ham [facility] 8 10:35:41 Acute sinusitis 26863191 Active 2022 JULISSA KRAUS [address] [place] [address], [address], [facility] 3 12:05:10 COVID-19 816337829 Active 2022 Mando Carey DO [address] [place] [address], [address], [facility] [place] [facility] 3 14:54:04 Post-acut e COVID-19 5449645081 Active 2022 Mando Carey DO [address] [place] [address], [address], [facility] [place] [facility] 3 14:54:31 Pneumonia caused by SARS-CoV- 2 279175776801 560488 Active 2022 Mando Carey DO [address] [place] [address], [address], [facility] [place] [facility] 3 14:55:45 Cough 63478421 Active 2023 Mando Carey, DO [address] [place] [address], [address], [facility] [place] [facility] 4 16:38:30 Fever 166237930 Active 2023 Mando Carey DO [address] [place] [address], [address], [facility] [place] [facility] 4 11:58:49 Polymyalg ia rheumatic a 05531295 Active 2023 Mando Carey DO [address] [place] [address], [address], [facility] [place] [facility] 4 11:26:42 Dyspnea on exertion 05400335 Active 2023 Mando Carey DO [address] [place] [address], [address], [facility] [place] [facility] 4 11:34:02 Insomnia 143025340 Active 2023 Mando Carey DO [address] [place] [address], [address], [facility] [place] [facility] 4 14:59:21 Cervical arthritis 699839342 Active 2017 Mando Carey DO [address] [place] [address], [address], [facility] [place] [facility] 8 11:04:29 Notes:gerd Problem Notes None recorded. Procedures Surgical History Date Name Laterality Status Provider Name and Address Organization Details Recorded Time 08/03/19 15 Colonoscopy completed Mando Carey DO [address] [place] [address], [address], [facility] [place] [facility] 11/23/2017 15:13:02 Imaging Results Imaging Date Name Status LastModified by Organiz ation Details LastModified Time 10/04/2023 XR, chest, 2 view completed [address], [place], [address], 10/08/2023 08:42:28 02/18/2024 US, echocardiog jenn, transthorac ic, complete, w/ color flow completed [email or web address] [facility] [address] [facility], [place], [address], 02/21/2024 11:00:44 Procedure Notes None recorded. Medical [...] Available Not Available Not Available amoxicillin 875 mg-federico mccormick clavulanate 125 mg tablet TAKE 1 TABLET BY MOUTH TWICE A DAY FOR 10 DAYS 05/15 completed Not Available Not Available Not Available losartan 100 mg-hydrochl orothiazide 12.5 mg tablet TAKE 1 TABLET DAILY 11/03 completed Not Available Not Available Not Available Fluzone High-Dose Quad 2020 (PF) 240 mcg/0.7 mL IM syringe PHARMACY ADMINISTE [facility] 01/22 completed Not Available Not Available Not Available Vitals Date Recorded Body height Body mass index (BMI) Body weight Heart rate Oxygen saturation Oxygen saturation in Arterial blood by Pulse oximetry Systolic blood pressure Diastolic blood pressure Provider Name and Address Organization Details Last Updated DateTime 4 175.26 cm 30.1 kg/m2 82761.8 4 g 78 /min 96 % 96 % 160 mm[Hg] 78 mm[Hg] Chula Rojas [facility] 4 14:45:23 Date Recorded Body height Body mass index (BMI) Body weight Heart rate Oxygen saturation Oxygen saturation in Arterial blood by Pulse oximetry Systolic blood pressure Diastolic blood pressure Provider Name and Address Organization Details Last Updated DateTime 4 175.26 cm 29.7 kg/m2 71647.0 7 g 97 /min 97 % 97 % 146 mm[Hg] 86 mm[Hg] Angel Martin [facility] 4 10:53:10 Date Recorded Body height Body mass index (BMI) Body weight Heart rate Oxygen saturation Oxygen saturation in Arterial blood by Pulse oximetry Systolic blood pressure Diastolic blood pressure Provider Name and Address Organization Details Last Updated DateTime 4 175.26 cm 29.5 kg/m2 65017.4 7 g 100 /min 98 % 98 % 144 mm[Hg] 74 mm[Hg] Chula Rojas [facility] 4 14:37:07 Date Recorded Body height Body mass index (BMI) Body weight Heart rate Oxygen saturation Oxygen saturation in Arterial blood by Pulse oximetry Systolic blood pressure Diastolic blood pressure Provider Name and Address Organization Details Last Updated DateTime 4 175.26 cm 29.5 kg/m2 30290.4 7 g 86 /min 98 % 98 % 148 mm[Hg] 84 mm[Hg] Angel Mario [facility] 4 11:23:22 Social History Question [...] conjugate PCV 13 8 completed Mando Carey, [address], [address], [facility] [place] [facility] 12/31/2017 09:32:36 Influenza, split virus, quadrivalent, preservative 8 completed Mando Carey, [address], [address], [facility] 12/31/2017 09:32:44 influenza, unspecified formulation 2 completed Christianne ham [facility] 05/15/2022 14:28:14 Td (adult) 2 completed Soheila ham [facility] 03/18/2018 12:07:16 zoster live 5 completed Soheila ham [facility] 03/18/2018 12:07:45 Influenza, split virus, quadrivalent, preservative 9 completed Opal ham [facility] 11/30/2018 08:02:18 Influenza, split virus, quadrivalent, preservative 0 completed Opal ham [facility] 01/23/2020 13:29:57 COVID-19, mRNA, LNP-S, PF, 100 mcg/0.5mL dose or 50 mcg/0.25mL dose 1 completed Soheila ham [facility] 08/05/2020 15:50:51 COVID-19, mRNA, LNP-S, PF, 100 mcg/0.5mL dose or 50 mcg/0.25mL dose 1 completed Soheila ham [facility] 08/06/2020 15:04:10 Past Encounters Encounter ID Performer Location Encounter Start Date Encounter Closed Date Diagnosis/Indication Diagnosis SNOMED-CT Code Diagnosis ICD10 Code Diagnosis Note [id number] Mando Carey [facility] [address] [facility] [address] 08/23/2017 10:34:37 08/23/2017 16:08:10 Hypercholesterolemia 56758192 E78.00 will need follow up fbw Essential hypertension 81663674 I10 home bp machine running [facility] noted that his machine is elevated Benign pro static hyperplasia 040910612 N40.0 last turp was successful [id number] Mando Carey [facility] [address] [facility],[place] [address] 02/23/2018 08:52:52 02/23/2018 12:28:31 Adult health examination 965638140 Z00.00 doing well overall states no cp no sob very active eating well sleeps well Hypercholesterolemia 136 35070 E78.00 will neeed to change med to atorvastat in marlene a trial Essential hypertension 94839796 I10 home bp machine running high noted that his machine is elevated will rechk bp and [place] [id number] Mando Carey [facility] [address] [facility],[place] [address] 03/18/2018 11:43:54 03/18/2018 12:36:31 Essential hypertension 84775996 I10 home bp machine running high noted that his machine is elevated but now seems pretty good rechk bp and we will see him when he gets back but cont [place] Hypercholesterolemia 136 26136 E78.00 will neeed to change med to atorvastat in marlene a trial Gastroesop hageal reflux disease 402054390 K21.9 cont to have omepraz [id number] Mando Duran Lin [facility] [address] [facility],[place] [address] 07/19/2018 15:40:04 07/20/2018 09:08:28 Essential hypertension 24004542 I10 home bp machine running high noted that his machine is elevated but now seems pretty good rechk bp and we will see him when he gets back but cont to monitor [place] Hypercholesterolemia 136 56575 E78.00 tolerating the atorvastat in i Abdominal aortic aneurysm screening 097122061 Z13.6 Hepatitis C screening 41 8245018 Z11.59 Gastroesop hageal reflux disease 293008253 K21.9 cont to have omepraz [id number] Mando Duran Lin [facility] [address] [facility] [address] 02/06/2019 14:49:05 02/06/2019 15:44:53 Essential hypertension 44912052 I10 home bp machine running high noted that his machine is elevated so will do it manually rechk bp and we will see him when he gets back but cont to monitor in [place] Hypercholesterolemia 136 58074 E78.00 tolerating the atorvastat in and the last LDL is 119 and HDL is 48 Gastroesop hageal reflux disease 527628318 K21.9 cont to have omepraz Benign pro static hyperplasia 345692453 N40.0 last turp was successful and has no prob Diverticulitis 711926041 K57.92 quiet and asympotoma tic no bleeding [id number] Mando StellaZoltan Carey [facility] [address] [facility] [address] [facility] [place] [address] 08/07/2019 13:57:10 08/07/2019 14:40:35 Essential hypertension 78072606 I10 home bp machine running high noted that his machine is elevated so will do it manually rechk bp and we will see him when he gets back but cont to monitor [place] Benign pro static hyperplasia 857944511 N40.0 last turp was successful and has no prob Diverticulitis 950628783 K57.92 quiet and asympotoma tic no bleeding Cervical arthritis 49814 1000 M46.92 seems to be sorte from time to time and can radiate but is mild Hypercholesterolemia 136 52545 E78.00 tolerating the atorvastat in and the last LDL is 119 and HDL is 48 [id number] Mando Carey DO [facility] [address] [facility] [facility] [place] [address] 01/23/2020 13:21:38 01/23/2020 14:29:23 Essential hypertension 50800545 I10 rechk bp and we will see him in the spring feels good so we will follow will check at home with a new bp machine Gastroesop hageal reflux disease 850404337 K21.9 cont to have omeprazole [id number] Mando Carey DO [facility] Internal [facility] [address] [facility], [place] [address] 08/06/2020 14:53:52 08/06/2020 15:37:54 Essential hypertension 67524855 I10 here for and new bp machine is running 140 with a wrist bp machine and this runs a bit high Benign pro static hyperplasia 078873655 N40.0 last turp was successful and has no prob not waking up to urinate anymore Hypercholesterolemia 136 14134 E78.00 tolerating the atorvastat in and the last LDL is 119 and HDL is 48 Gastroesop hageal reflux disease 063679292 K21.9 cont to have [place]ep[place] [id number] Mando Carey [facility] [address] [facility] [address] 03/03/2021 08:24:29 03/03/2021 16:20:26 Cervical arthritis 604203234 M46.92 seems to be sorte from time to time and can radiate but is mildwas using the bioflex for neck but he feels it messed with his bp stopped an d bp got better Essential hypertension 45614136 I10 here for and new bp machine is running 130/80s with a wrist bp machine and this runs a bit high in the morning but drops immediatel y as day goes on Hypercholesterolemia 136 81887 E78.00 tolerating the atorvastat in and the last LDL is 119 and HDL is 48 [id number] Mando Carey [facility] [address] [facility] [address] 08/08/2021 13:53:47 08/12/2021 11:27:50 Essential hypertension 71494440 I10 here for and new bp machine is running 150/80s-90 with a wrist bp machine and this runs a bit highnot sure why he is always good here in the office but we must cover so we will increase med slightly Hypercholesterolemia 136 98333 E78.00 tolerating the atorvastat in and the last LDL is 119 and HDL is 48 Gastroesop hageal reflux disease 242761792 K21.9 cont to have omeprazole is stable and no sx Advance care planning 71 3591949 Z71.89 done Cervical arthritis 02971 1000 M46.92 seems to be sorte from time to time and can radiate but is mildwas using the bioflex for neck but he feels it messed with his bp stopped an d bp got better [id number] Mando Carey DO [facility] [address] [facility],[place] [address] 11/03/2021 15:28:58 11/03/2021 16:21:25 Essential hypertension 92451014 I10 here for and new bp machine is running 150/80s-90 with a wrist bp machine and this runs a bit high but we will keepan eye on his bp and will rech in novnot sure why he is always good here in the office but we must cover so we will increase med slightly Cervical arthritis 75913 1000 M46.92 seems to be sorte from time to time and can radiate but is mildwas using the bioflex for neck but he feels it messed with his bp stopped an d bp got better Gastroesop hageal reflux disease 266551975 K21.9 cont to have [place] [id number] JULISSA KRAUS [facility] [address] [facility] [address] 05/04/2022 09:28:22 05/04/2022 13:31:21 Acute sinusitis 43522015 J01.01 start on augmentin [id number] Mando Carey [facility] [address] [place] [address],[place] [address] 05/15/2022 14:07:00 05/15/2022 16:05:57 Essential hypertension 32811855 I10 here for and new bp machine is running 150/80s-90 with a wrist bp machine and this runs a bit high but we will keepan eye on his bp and will rech in novnot sure why he is always good here in the office but we must cover so we will increase med slightly Post-acute COVID-19 1119 879619 U09.9 ongoing cough even though he now feels well Pneumonia caused by SARS-CoV-2 3638885665 56770708 J12.82 azith and medrol also with trelegy sample Cervical arthritis 85732 1000 M46.92 seems to be sorte from time to time and can radiate but is mildwas using the bioflex for neck but he feels it messed with his bp stopped an d bp got better [id number] Mando Carey DO [facility] [address] [facility],[place] [address] 11/10/2022 13:54:37 11/10/2022 14:37:45 Benign prostatic hyperplasia 607385447 N40.0 last turp was successful and has no prob not waking up to urinate anymore Essential hypertension 99994502 I10 here for and new bp machine is running 140/80s-90 and this runs a bit high but we will keep an eye on his bp and will rech in decnot sure why he is always good here in the office but we must cover so we will increase med slightly Hypercholesterolemia 136 13537 E78.00 tolerating the atorvastat in and the last LDL is 119 and HDL is 48 [id number] Mando Carey DO [facility] [address] [facility] [address] [facility] [place] [address] 05/17/2023 08:30:45 05/17/2023 16:37:14 Benign prostatic hyperplasia 340844499 N40.0 last turp was successful and has no prob not waking up to urinate anymore Essential hypertension 49351434 I10 here for and new bp machine is running 140/80s-90 and this runs a bit high but we will keep an eye on his bp and will rech in decnot sure why he is always good here in the office but we must cover so we will increase med slightly Hypercholesterolemia 136 65885 E78.00 tolerating the atorvastat in and the last LDL is 119 and HDL is 48 [id number] Mando Carey [facility] [address],[place] [address] 12/03/2023 14:37:11 12/03/2023 15:10:50 Essential hypertension 62570207 I10 running higer now with sys in 160's we will add the amlodipine 5mg and if tolerated will increase to 10 and hopefully stop the losartan hct [id number] Mando Carey [facility] [address],[place] [address] 01/25/2024 10:42:42 01/25/2024 11:47:58 Depression screening 743976967 Z13.31 neg Active or passive immunization 503841422 Z23 utd Essential hypertension 93560126 I10 running now with sys in 140's Polymyalgi a rheumatica 52011279 M35.3 Dyspnea on exertion 6084 5006 R06.09 [id number] Mando Carey [facility] [address] [place] [address],[place] [address] 02/14/2024 14:22:44 02/14/2024 15:04:32 Essential hypertension 82285122 I10 running now with sys in 140's Hypercholesterolemia 136 27600 E78.00 tolerating the atorvastat in and the last LDL is 119 and HDL is 48 Polymyalgi a rheumatica 84194881 M35.3 Insomnia 624591986 G47.0 9 [id number] Mando Carey [facility] [address] [place] [address],[place] [address] 03/10/2024 11:06:41 03/10/2024 11:58:41 Polymyalgia rheumatica 17288199 M35.3 30 to 25 for each week [...] Member ID Leyva Member ID Guarantor Name 05/17/2023 1 [place] Zaid Ordonez Ham[place] [id number] 2 Zaid Hamden 05/17/2023 2 [place] [id number] Zaid Ordonez Hamden [id number] Zaid Hamden 12/03/2023 1 [place] Zaid E Hamden [id number] Zaid Matthew 12/03/2023 2 [place] [id number] Zaid E Matthew [id number] Zaid Hamden 01/25/2024 1 [place] Zaid Ordonez Ham[place] [id number] 2 Zaid Hamden 01/25/2024 2 [place] [id number] Zaid E Hamden [id number] Zaid Hamden 02/14/2024 1 [place] Zaid Ordonez [place] [id number] 2 Zaid Hamden 02/14/2024 2 [place] [id number] Zaid E Hamden [id number] Zaid Matthew 03/10/2024 1 [place] Zaid Ordonez [place] [id number] 2 Zaid Hamden 03/10/2024 2 [place] [id number] Zaid E Matthew [id number] Zaid Navase Notes Date Note Type Note Provider Name a nd Address Organization Details Recorded Time 4 text/html patient is evaluated via tele/video assessment per patient consentduring current pandemic [id number] has been doing ok overallnot checking his bpno cp no sobstates had URI for the last 2 weeks finally feeling bettercough goneno abd pain bowels okbladder oksleep is goodhas lost 15 lbs by watching his carbs Mando A. Bigda, DO [address] [place], [address], [facility] [place] [facility] 05/17/2023 14:26:00 4 text/html has noticed an elevation of his bp has been consistently higher than normalno cp no sobotherwise feels goodurinating is better Mando Carey DO [address] [place], [address], [facility] [place] [facility] 12/03/2023 15:09:53 4 text/html her=e has been feeling lousy like he has a fever ( he doesnt)has been having pain in his musclesand all in his upper shoulders and u[[er arms and neck very sore tired and run down feeling Mando Carey DO [address] [place], [address], [facility] [place] [facility] 01/25/2024 11:34:41 4 text/html here for recjk of pmr doing fine no sx just is not able to sleepfeels great but having a hard time sleeping usus every other nightesr was 73 after pred down to 7 then 2all myalgias are goneprob is not sleepingtoherwise states feels great Mando Carey DO [address] [place], [address], [facility] [place] [facility] 02/14/2024 15:02:29 4 text/html here for rechk and is struggling with the prednisone for the PMR relates taking 30mg now Mando Carey DO [address] [place], [address], [facility] [place] [facility] 03/10/2024 11:57:42
[2024-03-29 11:56] LABS: Erythrocyte Sedimentation Rate 3 MM/HR (0-15)
== END 2024-03-29 08:56 | disposition home or self-care (01) ==
LOC: HO.WFDLDS 08:55
PROVIDERS: Visit Provider Internal Medicine
DX: M35.3 Polymyalgia rheumatica (principal)
CPT/HCPCS: 36415; 85652

== ENCOUNTER 2024-04-06 14:45 | Outpatient (REF) | payer MEDICARE, SELFPAY ==
[2024-04-06 18:26] LABS: Thyroid Stimulating Hormone 0.57 uIU/mL (0.32-4.0)
[2024-04-06 18:43] LABS: Folate 5.1 ng/mL (> or = 4.0); Vitamin B12 322 pg/mL (200-900)
[2024-04-06 18:55] LABS: Erythrocyte Sedimentation Rate 5 MM/HR (0-15)
--- OUTSIDE RECORDS SUMMARY | 2024-04-06 19:46 | XMS_ITS | Continuity of Care Document ---
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 Referral None recorded . Procedures None recorded . Surgeries None recorded . Imaging None recorded . Medication Orders None recorded . Patient TargetsNo targets recorded. Patient Instructions Encounter Date Encounter Id Patient Instructions Last Modified By Organization Details Last Modified Time 03/31/2024 [id number] polymyalgia rheumatica: care instructions Not available 03/31/2024 12:36:22 high blood pressure: care instructions Not available 03/31/2024 12:36:22 learning about high blood pressure Not available 03/31/2024 12:36:22 Reason for Referral None Reported. Results Created Date Observation Date Name Description Value Unit Range Abnormal Flag Note LastModifiedBy Organization Detail LastModifiedTime 04/04/1904/04/2024 CT, angio gram, head, w/wo contr ast No observ ation record ed. [email or web address] [facility] (Emergency Room) [address] [place], [address], 04/04/2024 08:21:33 Result Notes None recorded. Problems Name Problem SNOMED Code Status Onset Date Resolution Date Notes Provider Name and Address Organization Details Recorded Time Essential hypertens ion 44020943 Active 2017 Soheila ham [facility] 8 10:35:22 Hyperchol esterolem ia 16162250 Active 2017 Soheila ham [facility] 8 10:35:27 Benign prostatic hyperplas ia 433711928 Active 2017 Soheila ham [facility] 8 10:35:31 Diverticu litis 994783699 Active 2017 Soheila ham [facility] 8 10:35:41 Acute sinusitis 08756800 Active 2022 JULISSA KRAUS [address] [place] [address], [phone], [facility] 3 12:05:10 COVID-19 574309940 Active 2022 Mando Carey DO [address] [place] [address], [address], [facility] 3 14:54:04 Post-acut e COVID-19 6754818307 Active 2022 Mando Carey DO [address] [place] [address], [id number], [facility] 3 14:54:31 Pneumonia caused by SARS-CoV- 2 456777842908 199998 Active 2022 Mando Carey DO [address] [place] [address], [address], [facility] 3 14:55:45 Cough 22351815 Active 2023 Mando Carey DO [address] [place] [address], [address], [facility] 4 16:38:30 Fever 937542271 Active 2023 Mando Carey DO [address] [place] [address], [address], [facility] 4 11:58:49 Polymyalg ia rheumatic a 24366766 Active 2023 Mando Carey DO [address] [place] [address], [address], [facility] 4 11:26:42 Dyspnea on exertion 53494756 Active 2023 Mando Carey DO [address] [place] [address], [address], [facility] 4 11:34:02 Insomnia 257063343 Active 2023 Mando Carey DO [address] [place] [address], [address], [facility] 4 14:59:21 Paresthes ia 16325982 Active 2024 Mando Carey DO [address] [place] [address], [address], [facility] 5 11:34:09 Hyperglyc emia 51717732 Active 2024 Mando Carey DO [address] [place] [address], [address], [facility] 5 11:49:09 Cervical arthritis 254693392 Active 2017 Mando Carey DO [address] [place] [address], [address], [facility] 8 11:04:29 Notes:gerd Problem Notes None recorded. Procedures Surgical History Date Name Laterality Status Provider Name and Address Organization Details Recorded Time 08/03/19 15 Colonoscopy completed Mando Carey, DO [address], [place], [address], [facility] 11/23/2017 15:13:02 [...] 4 TABLETS EVERY DAY BY ORAL ROUTE active Not Available Not Available No t [...] and Address Organization Details Last Updated DateTime 5 175.26 cm 29.5 kg/m2 08062.4 7 g 95 /min 95 % 95 % 140 mm[Hg] 74 mm[Hg] Chula Rojas [facility] 5 12:07:57 Social History Question Answer Notes LastModified by Organizat ion Details LastModified Time Tobacco Smoking Status Former Smoker Not Available [facility] 03:36:24 What Was The Date Of Your Most Recent Tobacco Screening? 03/31/2024 [email or web address] Information not available 03/31/2024 Do You Or Have You Ever Used [...] PCV 13 8 completed Mando Carey DO [address] [place] [address], [address], [facility] 12/31/2017 09:32:36 Influenza, split virus, quadrivalent, preservative 8 completed Mando Carey DO [address] [place] [address], [address], [facility] 12/31/2017 09:32:44 influenza, unspecified formulation 2 completed Christianne ham [facility] 05/15/2022 14:28:14 Td (adult) 2 completed Soheila ham [facility] 03/18/2018 12:07:16 zoster live 5 completed Soheila ham [facility] 03/18/2018 12:07:45 Influenza, split virus, quadrivalent, preservative 9 completed Opal ham [facility] 11/30/2018 08:02:18 Influenza, split virus, quadrivalent, preservative 0 completed Opal ham [facility] 01/23/2020 13:29:57 COVID-19, mRNA, LNP-S, PF, 100 mcg/0.5mL dose or 50 mcg/0.25mL dose 1 completed Soheila ham [facility] 08/05/2020 15:50:51 COVID-19, mRNA, LNP-S, PF, 100 mcg/0.5mL dose or 50 mcg/0.25mL dose 1 [facility]:10 Past Encounters Encounter ID Performer Location Encounter Start Date Encounter Closed Date Diagnosis/Indication Diagnosis SNOMED-CT Code Diagnosis ICD10 Code Diagnosis Note [id number] Mando Carey [facility] [address] [place] [address] 03/10/2024 11:06:41 03/10/2024 11:58:41 Polymyalgia rheumatica 44309263 M35.3 30 to 25 for each week decrease by 1/2 tab will see pt again in mar when hes at 13 or 10 [id number] Mando Carey [facility] [address] [place] [address] 03/31/2024 11:49:40 03/31/2024 15:45:39 Polymyalgia rheumatica 37663514 M35.3 did not tolerate downto 15 will increase to 40 x 2 days then drop to 20 and stay until seen if a few weeks Essential hypertension 68722503 I10 running now with sys in 140's Health Concerns Section Related Observation LastModified by Organization Detai ls LastModified Time None Recorded Concern Status LastModified by Organization Details LastModified Time None Recorded Payers Encounter Date Sequence Insurance Name Policy Number Policy Leyva Covered Member ID Leyva Member ID Guarantor Name 03/31/2024 1 [place] [employer] Zaid Castro [id number] Zaid Castro 03/31/2024 2 [place] [id number] Zaid Castro [id number] Zaid Castro Notes Date Note Type Note Provider Name a nd Address Organization Details Recorded Time 03/31/2024 text/html here for rechk and relates that he was feeling good until he dropped down to 15mg now have tingling and discomfort Mando Carey, DO [address], [place], [address], [facility] 03/31/2024 12:36:43
--- OUTSIDE RECORDS SUMMARY | 2024-04-06 19:46 | XMS_ITS | Data Portability ---
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) : MDM LOW MUST MEET 2 OF [...] yte sedimenta tion rate), blood 2023 024 [facility], [address] [place] [address], [address], 02/02/2024 11:51:12 ESR (erythroc yte sedimenta tion rate), blood 2023 024 [facility], [address] [place] [address], [address], 02/09/2024 11:29:45 ESR (erythroc yte sedimenta tion rate), blood 2023 024 [facility], [address] [place] [address], [address], 03/10/2024 11:09:09 ESR (erythroc yte sedimenta tion rate), blood 2023 024 [facility], [address] [place] [address], [address], 03/30/2024 12:59:57 ESR (erythroc yte sedimenta tion rate), blood 2024 024 [facility], [address] [place] [address], [address], 03/30/2024 12:59:57 ESR (erythroc yte sedimenta tion rate), blood 2023 024 [facility], [address] [place] [address], [address], 02/28/2024 11:10:46 ESR (erythroc yte sedimenta tion rate), blood 2023 024 [facility], [address] [place] [address], [place], [address], 02/28/2024 11:10:46 Referral None recorded. Procedures None recorded. Surgeries None recorded. Imaging US, echocardi ogram, transthor acic, complete, w/ color flow 2023 [email or web address] Not available 01/26/2024 08:31:38 Medication Orders amlodipin e 5 mg tablet 2023 024 [facility] [address] [place], [address], 01/25/2024 10:51:27 prednison e 10 mg tablet 2023 024 [facility] [address] [place], [address], 01/25/2024 11:29:36 zolpidem 10 mg tablet 2023 024 [facility] [address] [place], [address], 02/14/2024 15:00:54 prednison e 10 mg tablet 2023 024 [facility] #[facility], [address] [place], [address], 02/14/2024 15:00:44 Patient TargetsNo targets recorded. Patient Instructions Encounter Date Encounter Id Patient Instructions Last Modified By Organization Details Last Modified Time 01/25/2024 [id number] polymyalgia rheumatica: care instructions Not available 01/25/2024 11:29:34 02/14/2024 [id number] insomnia: care instructions Not available 02/14/2024 15:00:26 polymyalgia rheumatica: care instructions Not available 02/14/2024 14:55:16 03/10/2024 [id number] polymyalgia rheumatica: care instructions Not available 03/10/2024 11:57:23 03/31/2024 [id number] polymyalgia rheumatica: care instructions Not available 03/31/2024 [...] flow No observ ation record ed. [email or web address] [address], [address], 02/21/2024 11:00:44 04/04/19 25 04/04/2024 CT, angio gram, head, w/wo contr ast No observ ation record ed. [email or web address] [facility] (Emergency Room) [address] [place] [address], [address], 04/04/2024 08:21:33 Result Notes None recorded. Problems Name Problem SNOMED Code Status Onset Date Resolution Date Notes Provider Name and Address Organization Details Recorded Time Essential hypertens ion 25768813 Active 2017 Soheila ham [facility] 8 10:35:22 Hyperchol esterolem ia 95040869 Active 2017 Soheila ham [facility] 8 10:35:27 Benign prostatic hyperplas ia 613582777 Active 2017 Soheila ham [facility] 8 10:35:31 Diverticu litis 830794395 Active 2017 Soheila ham [facility] 8 10:35:41 Acute sinusitis 38366730 Active 2022 JULISSA KRAUS [address] [place] [address], [address], [place] [facility] 3 12:05:10 COVID-19 098643255 Active 2022 Mando Carey DO [address] [place] [address], [phone], [facility] 3 14:54:04 Post-acut e COVID-19 0817377588 Active 2022 Mando Duran Ericsam, DO [address] [place] [address], [phone], [facility] 3 14:54:31 Pneumonia caused by SARS-CoV- 2 621291406331 839531 Active 2022 Mando uDran Lin, DO [address] [place] [address], [phone], [facility] 3 14:55:45 Cough 73113850 Active 2023 Mando GrayZoltan Carey, DO [address] [place] [address], [address], [facility] 4 16:38:30 Fever 851481676 Active 2023 Mando StellaZoltan Carey DO [address] [place] [address], [address], [facility] 4 11:58:49 Polymyalg ia erika gray 01716595 Active 2023 Mando StellaZoltan Carey DO [address] [place] [address], [address], [facility] 4 11:26:42 Dyspnea on exertion 50243615 Active 2023 Mando Carey DO [address] [place] [address], [address], [facility] 4 11:34:02 Insomnia 811128896 Active 2023 Mando Carey DO [address] [place] [address], [address], [facility] 4 14:59:21 Paresthes hiral 28140546 Active 2024 Mando Carey DO [address] [place] [address], [address], [facility] 5 11:34:09 Hyperglyc emia 65848207 Active 2024 Mando Carey DO [address] [place], [address], [facility] 5 11:49:09 Cervical arthritis 189650216 Active 2017 Mando Carey DO [address] [place], [address], [facility] 8 11:04:29 Notes:gerd Problem Notes None recorded. Procedures Surgical History Date Name Laterality Status Provider Name and Address Organization Details Recorded Time 08/03/19 15 Colonoscopy completed Mando Carey DO [address] [place], [address], [facility] 11/23/2017 15:13:02 Imaging Results Imaging Date Name Status LastModified by Organiz ation Details LastModified Time 02/18/2024 US, echocardiogra m, transthoracic , complete, w/ color flow completed [address], [address], 02/21/2024 11:00:44 04/04/2024 CT, angiogram, head, w/wo contrast completed [address] (Emergency Room) [address] [place] [address], [address], 04/04/2024 08:21:33 Procedure Notes None recorded. Medical Equipment None [...] Updated DateTime 4 175.26 cm 30.1 kg/m2 35136.8 4 g 78 /min 96 % 96 % 160 mm[Hg] 78 mm[Hg] [facility] 4 14:45:23 Date Recorded Body height Body mass index (BMI) Body weight Heart rate Oxygen saturation Oxygen saturation in Arterial blood by Pulse oximetry Systolic blood pressure Diastolic blood pressure Provider Name and Address Organization Details Last Updated DateTime 4 175.26 cm 29.7 kg/m2 24184.0 7 g 97 /min 97 % 97 % 146 mm[Hg] 86 mm[Hg] Angel Martin [facility] 4 10:53:10 Date Recorded Body height Body mass index (BMI) Body weight Heart rate Oxygen saturation Oxygen saturation in Arterial blood by Pulse oximetry Systolic blood pressure Diastolic blood pressure Provider Name and Address Organization Details Last Updated DateTime 4 175.26 cm 29.5 kg/m2 97202.4 7 g 100 /min 98 % 98 % 144 mm[Hg] 74 mm[Hg] [place] 4 14:37:07 Date Recorded Body height Body mass index (BMI) Body weight Heart rate Oxygen saturation Oxygen saturation in Arterial blood by Pulse oximetry Systolic blood pressure Diastolic blood pressure Provider Name and Address Organization Details Last Updated DateTime 4 175.26 cm 29.5 kg/m2 85820.4 7 g 86 /min 98 % 98 % 148 mm[Hg] 84 mm[Hg] Angel Martin [facility] Internal [facility] 4 11:23:22 Date Recorded Body height Body mass index (BMI) Body weight Heart rate Oxygen saturation Oxygen saturation in Arterial blood by Pulse oximetry Systolic blood pressure Diastolic blood pressure Provider Name and Address Organization Details Last Updated DateTime 5 175.26 cm 29.5 kg/m2 15954.4 7 g 95 /min 95 % 95 % 140 mm[Hg] 74 mm[Hg] [place] Internal [facility] 5 12:07:57 Social History Question Answer Notes LastModified by Organizat ion Details LastModified Time Tobacco Smoking Status Former Smoker Not Available [facility] 01/23/2020 03:36:24 What Was The Date Of Your Most Recent Tobacco Screening? 03/31/2024 [email or web address] Information not available 03/31/2024 Do You Or [...] PCV 13 8 completed Mando Carey, DO [address] [place] [address], [address], [facility] 12/31/2017 09:32:36 Influenza, split virus, quadrivalent, preservative 8 completed Mando Carey, DO [address] [place], [address], [facility] 12/31/2017 09:32:44 influenza, unspecified formulation 2 [facility] 14:28:14 Td (adult) 2 [facility] 03/18/2018 12:07:16 zoster live 5 [facility] 03/18/2018 12:07:45 Influenza, split virus, quadrivalent, preservative 9 completed Opal Stallings [facility] 11/30/2018 08:02:18 Influenza, split virus, quadrivalent, preservative 0 [facility] 01/23/2020 13:29:57 COVID-19, mRNA, LNP-S, PF, 100 mcg/0.5mL dose or 50 mcg/0.25mL dose 1 jess ham [facility] 08/05/2020 15:50:51 COVID-19, mRNA, LNP-S, PF, 100 mcg/0.5mL dose or 50 mcg/0.25mL dose 1 jess ham [facility] 08/06/2020 15:04:10 Past Encounters Encounter ID Performer Location Encounter Start Date Encounter Closed Date Diagnosis/Indication Diagnosis SNOMED-CT Code Diagnosis ICD10 Code Diagnosis Note [id number] Mando Carey [facility] [address] [facility] [address] 08/23/2017 10:34:37 08/23/2017 16:08:10 Hypercholesterolemia 53121462 E78.00 will need follow up fbw Essential hypertension 07274442 I10 home bp machine running high noted that his machine is elevated Benign pro static hyperplasia 985990924 N40.0 last turp was successful [id number] Mando Carey [facility] [address] [facility] [address] 02/23/2018 08:52:52 02/23/2018 12:28:31 Adult health examination 863313882 Z00.00 doing well overall states no cp no sob very active eating well sleeps well Hypercholesterolemia 136 09985 E78.00 will neeed to change med to atorvastat in marlene a trial Essential hypertension 89905122 I10 home bp machine running high noted that his machine is elevated will rechk bp and [place] [id number] Mando Carey [facility] [address] [facility] [address] 03/18/2018 11:43:54 03/18/2018 12:36:31 Essential hypertension 69127260 I10 home bp machine running high noted that his machine is elevated but now seems pretty good rechk bp and we will see him when he gets back but cont to monitor [place] Hypercholesterolemia 136 13516 E78.00 will neeed to change med to atorvastat in marlene a trial Gastroesop hageal reflux disease 264513428 K21.9 cont to have omepraz [id number] Mando Carey [facility] [address] [facility] [address] 07/19/2018 15:40:04 07/20/2018 09:08:28 Essential hypertension 63796922 I10 home bp machine running high noted that his machine is elevated but now seems pretty good rechk bp and we will see him when he gets back but cont to monitor in [place] Hypercholesterolemia 136 37119 E78.00 tolerating the atorvastat in i Abdominal aortic aneurysm screening 889017851 Z13.6 Hepatitis C screening 41 4612813 Z11.59 Gastroesop hageal reflux disease 688775248 K21.9 cont to have omepraz [id number] Mando Carey [facility] [address] [facility] [place] [address] 02/06/2019 14:49:05 02/06/2019 15:44:53 Essential hypertension 53175709 I10 home bp machine running high noted that his machine is elevated so will do it manually rechk bp and we will see him when he gets back but cont to monitor in [place] Hypercholesterolemia 136 53821 E78.00 tolerating the atorvastat in and the last LDL is 119 and HDL is 48 Gastroesop hageal reflux disease 698526470 K21.9 cont to have omepraz Benign pro static hyperplasia 496977976 N40.0 last turp was successful and has no prob Diverticulitis 336557771 K57.92 quiet and asympotoma tic no bleeding [id number] Mando Carey [facility] [address] [facility] [place] [address] 08/07/2019 13:57:10 08/07/2019 14:40:35 Essential hypertension 39137743 I10 home bp machine running high noted that his machine is elevated so will do it manually rechk bp and we will see him when he gets back but cont to monitor in [place] Benign pro static hyperplasia 676184131 N40.0 last turp was successful and has no prob Diverticulitis 071813596 K57.92 quiet and asympotoma tic no bleeding Cervical arthritis 31119 1000 M46.92 seems to be sorte from time to time and can radiate but is mild Hypercholesterolemia 136 55267 E78.00 tolerating the atorvastat in and the last LDL is 119 and HDL is 48 [id number] Mando Carey [facility] [address] [facility] [place] [address] 01/23/2020 13:21:38 01/23/2020 14:29:23 Essential hypertension 66210383 I10 rechk bp and we will see him in the spring feels good so we will follow will check at home with a new bp machine Gastroesop hageal reflux disease 750352285 K21.9 cont to have omeprazole [id number] Mando Carey [facility] [address] [facility] [address] 08/06/2020 14:53:52 08/06/2020 15:37:54 Essential hypertension 22588562 I10 here for and new bp machine is running 140 with a wrist bp machine and this runs a bit high Benign pro static hyperplasia 545538779 N40.0 last turp was successful and has no prob not waking up to urinate anymore Hypercholesterolemia 136 78845 E78.00 tolerating the atorvastat in and the last LDL is 119 and HDL is 48 Gastroesop hageal reflux disease 199831821 K21.9 cont to [place] [id number] Mando Carey [facility] [address] [facility] [address] 03/03/2021 08:24:29 03/03/2021 16:20:26 Cervical arthritis 279421184 M46.92 seems to be sorte from time to time and can radiate but is mildwas using the bioflex for neck but he feels it messed with his bp stopped an d bp got better Essential hypertension 42277238 I10 here for and new bp machine is running 130/80s with a wrist bp machine and this runs a bit high in the morning but drops immediatel y as day goes on Hypercholesterolemia 136 90806 E78.00 tolerating the atorvastat in and the last LDL is 119 and HDL is 48 [id number] Mando Carey [facility] [address] [facility] [address] 08/08/2021 13:53:47 08/12/2021 11:27:50 Essential hypertension 90903119 I10 here for and new bp machine is running 150/80s-90 with a wrist bp machine and this runs a bit highnot sure why he is always good here in the office but we must cover so we will increase med slightly Hypercholesterolemia 136 54098 E78.00 tolerating the atorvastat in and the last LDL is 119 and HDL is 48 Gastroesop hageal reflux disease 072478085 K21.9 cont to have omeprazole is stable and no sx Advance care planning 71 3129410 Z71.89 done Cervical arthritis 26500 1000 M46.92 seems to be sorte from time to time and can radiate but is mildwas using the bioflex for neck but he feels it messed with his bp stopped an d bp got better [id number] Mando Carey DO [facility] [address] [facility] [address] 11/03/2021 15:28:58 11/03/2021 16:21:25 Essential hypertension 79528313 I10 here for and new bp machine is running 150/80s-90 with a wrist bp machine and this runs a bit high but we will keepan eye on his bp and will rech in novnot sure why he is always good here in the office but we must cover so we will increase med slightly Cervical arthritis 25569 1000 M46.92 seems to be sorte from time to time and can radiate but is mildwas using the bioflex for neck but he feels it messed with his bp stopped an d bp got better Gastroesop hageal reflux disease 569477156 K21.9 cont to [place] [id number] JULISSA KRAUS [facility] [address] [facility] [address] 05/04/2022 09:28:22 05/04/2022 13:31:21 Acute sinusitis 81421610 J01.01 start on augmentin [id number] Mando Carey DO [facility] [address] [facility] [address] 05/15/2022 14:07:00 05/15/2022 16:05:57 Essential hypertension 32352110 I10 here for and new bp machine is running 150/80s-90 with a wrist bp machine and this runs a bit high but we will keepan eye on his bp and will rech in novnot sure why he is always good here in the office but we must cover so we will increase med slightly Post-acute COVID-19 1119 306166 U09.9 ongoing cough even though he now feels well Pneumonia caused by SARS-CoV-2 4626541079 47432502 J12.82 azith and medrol also with trelegy sample Cervical arthritis 75593 1000 M46.92 seems to be sorte from time to time and can radiate but is mildwas using the bioflex for neck but he feels it messed with his bp stopped an d bp got better [id number] Mando Carey [facility] [address] [facility] [address] 11/10/2022 13:54:37 11/10/2022 14:37:45 Benign prostatic hyperplasia 917879074 N40.0 last turp was successful and has no prob not waking up to urinate anymore Essential hypertension 53268029 I10 here for and new bp machine is running 140/80s-90 and this runs a bit high but we will keep an eye on his bp and will rech in decnot sure why he is always good here in the office but we must cover so we will increase med slightly Hypercholesterolemia 136 41871 E78.00 tolerating the atorvastat in and the last LDL is 119 and HDL is 48 [id number] Mando Carey [facility] [address] [facility] [address] 05/17/2023 08:30:45 05/17/2023 16:37:14 Benign prostatic hyperplasia 129536293 N40.0 last turp was successful and has no prob not waking up to urinate anymore Essential hypertension 79996452 I10 here for and new bp machine is running 140/80s-90 and this runs a bit high but we will keep an eye on his bp and will rech in decnot sure why he is always good here in the office but we must cover so we will increase med slightly Hypercholesterolemia 136 74644 E78.00 tolerating the atorvastat in and the last LDL is 119 and HDL is 48 [id number] Mando Carey [facility] [address] [facility] [address] 12/03/2023 14:37:11 12/03/2023 15:10:50 Essential hypertension 97987809 I10 running higer now with sys in 160's we will add the amlodipine 5mg and if tolerated will increase to 10 and hopefully stop the losartan hct [id number] Mando Carey [facility] [address] [facility] [address] 01/25/2024 10:42:42 01/25/2024 11:47:58 Depression screening 523908675 Z13.31 neg Active or passive immunization 541896443 Z23 utd Essential hypertension 42078995 I10 running now with sys in 140's Polymyalgi a rheumatica 35351477 M35.3 Dyspnea on exertion 6084 5006 R06.09 [id number] Mando Carey [facility] [address] [facility] [address] 02/14/2024 14:22:44 02/14/2024 15:04:32 Essential hypertension 88739988 I10 running now with sys in 140's Hypercholesterolemia 136 62818 E78.00 tolerating the atorvastat in and the last LDL is 119 and HDL is 48 Polymyalgi a rheumatica 69496908 M35.3 Insomnia 086497603 G47.0 9 [id number] Mando Carey [facility] [address] [facility] [address] 03/10/2024 11:06:41 03/10/2024 11:58:41 Polymyalgia rheumatica 61004543 M35.3 30 to 25 for each week decrease by 1/2 tab will see pt again in mar when hes at 15 or 10 [id number] Mando Carey [facility] [address] [facility] [address] 03/31/2024 11:49:40 03/31/2024 15:45:39 Polymyalgia rheumatica 44236296 M35.3 did not tolerate downto 15 will increase to 40 x 2 days then drop to 20 and stay until seen if a few weeks Essential hypertension 34941366 I10 running now with sys in 140's Health Concerns Section Related Observation LastModified by Organization Detai ls LastModified Time None Recorded Concern Status LastModified by Organization Details LastModified Time None Recorded Advance Directives Directive None Recorded Payers Encounter Date Sequence Insurance Name Policy Number Policy Leyva Covered Member ID Leyva Member ID Guarantor Name 12/03/2023 1 [place] [employer] [place] Zaid Ordonez Matthew [id number] Zaid Matthew 12/03/2023 2 [place] [id number] Zaid Ordonez Matthew [id number] Zaid Matthew 01/25/2024 1 [place] Zaid E Matthew [id number] Zaid Matthew 01/25/2024 2 [place] [id number] Zaid E [place] [id number] Zaid Matthew 02/14/2024 1 [place] Zaid Ordonez Matthew [id number] 2 Zaid Matthew 02/14/2024 2 [place] [id number] Zaid Ordonez [place] [id number] Zaid [place] 03/10/2024 1 [place] Zaid E Matthew [id number] 2 Zaid [place] 03/10/2024 2 [place] [id number] Zaid E [place] [id number] Zaid Matthew 03/31/2024 1 [place] Zaid Ordonez Matthew [id number] 2 Zaid Matthew 03/31/2024 2 [place] [id number] Zaid Ordonez Matthew [id number] Zaid [place] Notes Date Note Type Note Provider Name a nd Address Organization Details Recorded Time 4 text/html has noticed an elevation of his bp has been consistently higher than normalno cp no sobotherwise feels goodurinating is better Mando Carey, DO [address] [facility], [place], [address], [facility] 12/03/2023 15:09:53 4 text/html her=e has been feeling lousy like he has a fever ( he doesnt)has been having pain in his musclesand all in his upper shoulders and u[[er arms and neck very sore tired and run down feeling Mando Carey DO [address] [place], [address], [facility] 01/25/2024 11:34:41 4 text/html here for recjk of pmr doing fine no sx just is not able to sleepfeels great but having a hard time sleeping usus every other nightesr was 73 after pred down to 7 then 2all myalgias are goneprob is not sleepingtoherwise states feels great Mando Carey DO [address] [place], [address], [facility] 02/14/2024 15:02:29 4 text/html here for rechk and is struggling with the prednisone for the PMR relates taking 30mg now Mando Carey DO [address] [place] [address], [phone], [facility] 03/10/2024 11:57:42 5 text/html here for rechk and relates that he was feeling good until he dropped down to 15mg now have tingling and discomfort Mando Carey DO [address] [place] [address], [address], [facility] 03/31/2024 12:36:43
--- OUTSIDE RECORDS SUMMARY | 2024-04-06 19:47 | XMS_ITS | Continuity of Care Document ---
Author Organization [facility], [facility] Address [address] [place] [address] Assessment No assessment recorded. Plan of Treatment [...] By Organization Details Last Modified Time 03/10/2024 [id number] polymyalgia rheumatica: care instructions Not available 03/10/2024 11:57:23 Reason for Referral None Reported. Results Created Date Observation Date Name Description Value Unit Range Abnormal Flag Note LastModifiedBy Organization Detail LastModifiedTime 02/19/20 24 02/18/2024 US, echoc ardio gram, trans thora cic, compl ete, w/ color flow No observ ation record ed. [email or web address] [address], [address], 02/21/2024 11:00:44 04/04/19 25 04/04/2024 CT, angio gram, head, w/wo contr ast No observ ation record ed. [email or web address] [facility] (Emergency Room) [address] [place] [address], [address], 04/04/2024 08:21:33 Result Notes None recorded. Problems Name Problem SNOMED Code Status Onset Date Resolution Date Notes Provider Name and Address Organization Details Recorded Time Essential hypertens ion 43084756 Active 2017 APARNA Mohan Manhan [facility] 8 10:35:22 Hyperchol esterolem ia 97275547 [facility] 10:35:27 Benign prostatic hyperplas ia 990788627 [facility] 8 10:35:31 Diverticu litis 824783057 Active 2017 [facility] 8 10:35:41 Acute sinusitis 50084305 Active 2022 JULISSA KRAUS [address] [place] [address], [address], [facility] 3 12:05:10 COVID-19 552298163 Active 2022 Mando Carey [address], [address], [facility] 3 14:54:04 Post-acut e COVID-19 0822167843 Active 2022 Mando Carey DO [address] [place] [address], [address], [facility] 3 14:54:31 Pneumonia caused by SARS-CoV- 2 118605013187 583492 Active 2022 Mando Carey DO [address] [place] [address], [address], [facility] 3 14:55:45 Cough 57829485 Active 2023 Mando Carey DO [address] [place] [address], [address], [facility] 4 16:38:30 Fever 865158472 Active 2023 Mando Carey DO [address] [place] [address], [address], [facility] 4 11:58:49 Polymyalg ia rheumatic a 12595997 Active 2023 Mando Carey DO [address] [place] [address], [address], [facility] 4 11:26:42 Dyspnea on exertion 11070842 Active 2023 Mando Carey DO [address] [place] [address], [address], [facility] 4 11:34:02 Insomnia 441236872 Active 2023 Mando Carey DO [address] [place] [address], [address], [facility] 4 14:59:21 Paresthes ia 99410610 Active 2024 Mando Carey DO [address] [place] [address], [address], [facility] 5 11:34:09 Hyperglyc emia 40662578 Active 2024 Mando Carey DO [address] [place] [address], [address], [facility] 5 11:49:09 Cervical arthritis 243008422 Active 2017 Mando Carey DO [address] [place] [address], [address], [facility] 8 11:04:29 Notes:gerd Problem Notes None recorded. Procedures Surgical History Date Name Laterality Status Provider Name and Address Organization Details Recorded Time 08/03/19 15 Colonoscopy completed Mando Carey DO [address] [place] [address], [address], [facility] 11/23/2017 15:13:02 Imaging [...] Updated DateTime 4 175.26 cm 29.5 kg/m2 23491.4 7 g 86 /min 98 % 98 % 148 mm[Hg] 84 mm[Hg] Angel [place] [facility] 4 11:23:22 Social History Question Answer Notes LastModified by Organizat ion Details LastModified Time Tobacco Smoking Status Former Smoker Not Available [facility] 01/23/2020 03:36:24 What Was The Date Of Your Most Recent Tobacco Screening? 03/31/2024 [email or web address] Information not available 03/31/2024 Do You Or [...] PCV 13 8 completed Mando Carey DO [address] [place] [address], [address], [facility] 12/31/2017 09:32:36 Influenza, split virus, quadrivalent, preservative 8 completed Mando Carey DO [address] [place] [address], [address], [facility] 12/31/2017 09:32:44 influenza, unspecified formulation 2 completed Christianne ham [facility] 05/15/2022 14:28:14 Td (adult) 2 completed Soheila ham [facility] 03/18/2018 12:07:16 zoster live 5 completed Soheila ham [facility] 03/18/2018 12:07:45 Influenza, split virus, quadrivalent, preservative 9 completed Opal ham [facility] 11/30/2018 08:02:18 Influenza, split virus, quadrivalent, preservative 0 completed Opal ham [facility] 01/23/2020 13:29:57 COVID-19, mRNA, LNP-S, PF, 100 mcg/0.5mL dose or 50 mcg/0.25mL dose 1 completed Soheila ham [facility] 08/05/2020 15:50:51 COVID-19, mRNA, LNP-S, PF, 100 mcg/0.5mL dose or 50 mcg/0.25mL dose 1 completed Soheila ham [facility] 08/06/2020 15:04:10 Past Encounters Encounter ID Performer Location Encounter Start Date Encounter Closed Date Diagnosis/Indication Diagnosis SNOMED-CT Code Diagnosis ICD10 Code Diagnosis Note [id number] [facility] [address] [place] [address],[place] [address] 02/14/2024 14:22:44 02/14/2024 15:04:32 Essential hypertension 10762710 I10 running now with sys in 140's Hypercholesterolemia 136 57242 E78.00 tolerating the atorvastat in and the last LDL is 119 and HDL is 48 Polymyalgi a rheumatica 14017194 M35.3 Insomnia 121770722 G47.[id number] [facility] [address] [facility],[place] [address] 03/10/2024 11:06:41 03/10/2024 11:58:41 Polymyalgia rheumatica 97300338 M35.3 30 to 25 for each week [...] ID Guarantor Name 03/10/2024 1 [place] [employer] Zaid Castro [id number] Zaid Castro 03/10/2024 2 [place] [id number] Zaid Castro [id number] Zaid Castro Notes Date Note Type Note Provider Name a nd Address Organization Details Recorded Time 03/10/2024 text/html here for rechk and is struggling with the prednisone for the PMR relates taking 30mg now Mando Carey, DO [address] [facility], [place], [address], [facility] 03/10/2024 11:57:42
--- OUTSIDE RECORDS SUMMARY | 2024-04-06 19:47 | XMS_ITS | Continuity of Care Document ---
Author Organization [facility], [facility] Address [address] [place] [address] [place] [address] Assessment Encounter Date Assessment Date Assessment LastModified by Organization Details LastModified Time 01/25/2024 01/25/2024 [id number] [place] [id number] ([employer]) MDM MODERATE MUST MEET 2 OUT OF [...] yte sedimenta tion rate), blood 2023 024 [facility], [address] [place] [address], [place], [address], 02/02/2024 11:51:12 ESR (erythroc yte sedimenta tion rate), blood 2023 024 [facility], [address] [place] [address], [place], [address], 02/09/2024 11:29:45 ESR (erythroc yte sedimenta tion rate), blood 2023 024 [facility], [address] [place] [address], [address], 03/10/2024 11:09:09 ESR (erythroc yte sedimenta tion rate), blood 2023 024 [facility], [address] [place] [address], [address], 03/30/2024 12:59:57 ESR (erythroc yte sedimenta tion rate), blood 2024 024 [facility], [address] [place] [address], [address], 03/30/2024 12:59:57 Referral None recorded. Procedures None recorded. Surgeries None recorded. Imaging US, echocardi ogram, transthor acic, complete, w/ color flow 2023 [email or web address] Not available 01/26/2024 08:31:38 Medication Orders prednison e 10 mg tablet 2023 [id number], [address] [place], [address], 01/25/2024 11:29:36 Patient TargetsNo targets recorded. Patient Instructions Encounter Date Encounter Id Patient Instructions Last Modified By Organization Details Last Modified Time 01/25/2024 [id number] polymyalgia rheumatica: care instructions Not available 01/25/2024 11:29:34 Reason for Referral None Reported. Results Created Date Observation Date Name Description Value Unit Range Abnormal Flag Note LastModifiedBy Organization Detail LastModifiedTime 02/19/20 24 02/18/2024 US, echoc ardio gram, trans thora cic, compl ete, w/ color flow No observ ation record ed. [email or web address] [address], [address], 02/21/2024 11:00:44 04/04/19 25 04/04/2024 CT, angio gram, head, w/wo contr ast No observ ation record ed. [email or web address] [facility] (Emergency Room) [address] [place] [address], [address], 04/04/2024 08:21:33 Result Notes None recorded. Problems Name Problem SNOMED Code Status Onset Date Resolution Date Notes Provider Name and Address Organization Details Recorded Time Essential hypertens ion 21354622 Active 2017 Soheila ham [facility] 8 10:35:22 Hyperchol esterolem ia 46833067 Active 2017 Soheila ham [facility] 8 10:35:27 Benign prostatic hyperplas ia 822309350 Active 2017 Soheila ham [facility] 8 10:35:31 Diverticu litis 479151930 Active 2017 Soheila ham [facility] 8 10:35:41 Acute sinusitis 01684608 Active 2022 JULISSA KRAUS [address] [place] [address], [address], [facility] 3 12:05:10 COVID-19 485175895 Active 2022 Mando Carey DO [address] [place] [address], [address], [facility] 3 14:54:04 Post-acut e COVID-19 7638772728 Active 2022 Mando Carey DO [address] [place] [address], [address], [facility] 3 14:54:31 Pneumonia caused by SARS-CoV- 2 456480150606 592824 Active 2022 Mando Carey DO [address] [place] [address], [address], [facility] 3 14:55:45 Cough 02902335 Active 2023 Mando Roger Carey, DO [address] [place] [address], [address], [facility] 4 16:38:30 Fever 164608257 Active 2023 Mando DouglasZoltan Carey DO [address] [place] [address], [address], [facility] 4 11:58:49 Polymyalg ia rheumatic a 76258276 Active 2023 Mando Roger Carey DO [address] [place] [address], [address], [facility] 4 11:26:42 Dyspnea on exertion 44776124 Active 2023 Mando Carey DO [address] [place] [address], [address], [facility] 4 11:34:02 Insomnia 629756773 Active 2023 Mando Carey DO [address] [place] [address], [address], [facility] 4 14:59:21 Paresthes ia 12890374 Active 2024 Mando Caery DO [address] [place] [address], [address], [facility] 5 11:34:09 Hyperglyc emia 96364515 Active 2024 Mando Carey DO [address] [place] [address], [address], [facility] 5 11:49:09 Cervical arthritis 240777424 Active 2017 Mando Carey DO [address] [place] [address], [address], [facility] 8 11:04:29 Notes:gerd Problem Notes None recorded. Procedures Surgical History Date Name Laterality Status Provider Name and Address Organization Details Recorded Time 08/03/19 15 Colonoscopy completed Mando Carey DO [address] [facility], [place], [address], [facility] 11/23/2017 15:13:02 Imaging [...] Updated DateTime 4 175.26 cm 29.7 kg/m2 42643.0 7 g 97 /min 97 % 97 % 146 mm[Hg] 86 mm[Hg] Angel Martin [facility] 4 10:53:10 Social History Question Answer Notes LastModified by Organizat ion Details LastModified Time Tobacco Smoking Status Former Smoker Not Available [facility] 01/23/2020 03:36:24 What Was The Date Of Your Most Recent Tobacco Screening? 03/31/2024 [email or web address] Information not available 03/31/2024 Do You Or [...] PCV 13 8 completed Mando Carey DO [address] [place] [address], [address], [facility] 12/31/2017 09:32:36 Influenza, split virus, quadrivalent, preservative 8 completed Mando Carey DO [address] [place] [address], [address], [facility] 12/31/2017 09:32:44 influenza, unspecified formulation 2 completed [facility] [place] 05/15/2022 14:28:14 Td (adult) 2 completed Soheila ham [facility] 03/18/2018 12:07:16 zoster live 5 completed Soheila ham [facility] 03/18/2018 12:07:45 Influenza, split virus, quadrivalent, preservative 9 completed Opal [facility] 11/30/2018 08:02:18 Influenza, split virus, quadrivalent, preservative 0 completed Opal [facility] 01/23/2020 13:29:57 COVID-19, mRNA, LNP-S, PF, 100 mcg/0.5mL dose or 50 mcg/0.25mL dose 1 jess ham [facility] 08/05/2020 15:50:51 COVID-19, mRNA, LNP-S, PF, 100 mcg/0.5mL dose or 50 mcg/0.25mL dose 1 jess Lu [facility] 08/06/2020 15:04:10 Past Encounters Encounter ID Performer Location Encounter Start Date Encounter Closed Date Diagnosis/Indication Diagnosis SNOMED-CT Code Diagnosis ICD10 Code Diagnosis Note [id number] Mando Carey [facility] [address] [facility],[place] [address] 01/25/2024 10:42:42 01/25/2024 11:47:58 Depression screening 192057247 Z13.31 neg Active or passive immunization 268361096 Z23 utd Essential hypertension 93262035 I10 running now with sys in 140's Polymyalgi a rheumatica 40546479 M35.3 Dyspnea on exertion 6084 5006 R06.09 Health Concerns Section Related Observation LastModified by Organization Detai ls LastModified Time None Recorded Concern Status LastModified by Organization Details LastModified Time None Recorded Payers Encounter Date Sequence Insurance Name Policy Number Policy Leyva Covered Member ID Leyva Member ID Guarantor Name 01/25/2024 1 MEDICARE B-[place]: [facility] [employer] Zaid Castro [id number] Zaid Castro 01/25/2024 2 RUBA: MEDEX (MEDICARE SUPPLEMENT) [id number] Zaid Castro [id number] Zaid Castro Notes Date Note Type Note Provider Name a nd Address Organization Details Recorded Time 01/25/2024 text/html her=e has been feeling lousy like he has a fever ( he doesnt)has been having pain in his musclesand all in his upper shoulders and u[[er arms and neck very sore tired and run down feeling Mando Carey, DO [address] [facility], [place], [address], [facility] 01/25/2024 11:34:41
--- OUTSIDE RECORDS SUMMARY | 2024-04-06 19:47 | XMS_ITS | Continuity of Care Document ---
Author Organization [facility], [facility] Address [address] [place] [address] [place] [address] Assessment No assessment recorded. Plan of Treatment Reminders Order Date Submit Date Provider Last Modified By Organization Details Last Modified Time Details Appointments FOLLOW UP 15 2024 02:45P M DR CAREY Not available Not available Not available Lab ESR (erythroc yte sedimenta tion rate), blood 2023 [facility], [address] [place] [address], [id number], 02/28/2024 11:10:46 ESR (erythroc yte sedimenta tion rate), blood 2023 024 [facility], [address] [place] [address], [id number], 02/28/2024 11:10:46 Referral None recorded. Procedures None recorded. Surgeries None recorded. Imaging None recorded. Medication Orders zolpidem 10 mg tablet [address] [facility] #[id number], [address] [place], [address], 02/14/2024 15:00:54 prednison e 10 mg tablet [address] [facility] #[id number], [address] [place], [address], 02/14/2024 15:00:44 Patient TargetsNo targets recorded. Patient Instructions Encounter Date Encounter Id Patient Instructions Last Modified By Organization Details Last Modified Time 02/14/2024 [id number] insomnia: care instructions Not available 02/14/2024 15:00:26 polymyalgia rheumatica: care instructions Not available 02/14/2024 14:55:16 Reason for Referral None Reported. Results Created Date Observation Date Name Description Value Unit Range Abnormal Flag Note LastModifiedBy Organization Detail LastModifiedTime 02/19/20 24 02/18/2024 US, echoc ardio gram, trans thora cic, compl ete, w/ color flow No observ ation record ed. [email or web address] [address], [address], 02/21/2024 11:00:44 04/04/1904/04/2024 CT, angio gram, head, w/wo contr ast No observ ation record ed. [facility] (Emergency Room) [address] [place] [address], [id number], 04/04/2024 08:21:33 Result Notes None recorded. Problems Name Problem SNOMED Code Status Onset Date Resolution Date Notes Provider Name and Address Organization Details Recorded Time Essential hypertens ion 58320298 Active 2017 Soheila ham [facility] 8 10:35:22 Hyperchol esterolem ia 62904570 Active 2017 Soheila ham [facility] 8 10:35:27 Benign prostatic hyperplas ia 068409085 Active 2017 Soheila ham [facility] 8 10:35:31 Diverticu litis 627306426 Active 2017 Soheila ham [facility] 8 10:35:41 Acute sinusitis 53128775 Active 2022 JULISSA KRAUS [address] [place] [address], [phone], [place] [facility] 3 12:05:10 COVID-19 562423561 Active 2022 Mando Carey DO [address] [place], [address], [facility] [place] 3 14:54:04 Post-acut e COVID-19 6301788669 Active 2022 Mando DouglasZoltan Carey, DO [address] [place] [address], [phone], [facility] [place] 3 14:54:31 Pneumonia caused by SARS-CoV- 2 389388021185 231829 Active 2022 Mando Carey, DO [address] [place] [address], , [facility] [place] 3 14:55:45 Cough 64495180 Active 2023 Mando Carey, DO [address] [place] [address], , [facility] [place] 4 16:38:30 Fever 757616670 Active 2023 Mando Carey DO [address] [place] [address], , [facility] [place] 4 11:58:49 Polymyalg ia rheumatic a 64840224 Active 2023 Mando Carey DO [address] [place] [address], , [facility] [place] 4 11:26:42 Dyspnea on exertion 96370735 Active 2023 Mando Carey DO [address] [place] [address], , [facility] [place] 4 11:34:02 Insomnia 114464211 Active 2023 Mando Carey DO [address] [place] [address], , [facility] [place] 4 14:59:21 Paresthes ia 04977644 Active 2024 Mando Carey DO [address] [place] [address], [phone], [facility] [place] 5 11:34:09 Hyperglyc emia 76940376 Active 2024 Mando Carey, DO [address] [place], [address], [facility] [place] 5 11:49:09 Cervical arthritis 906736013 Active 2017 Mando Carey [address] [place], [address], [facility] [place] 8 11:04:29 Notes:gerd Problem Notes None recorded. Procedures Surgical History Date Name Laterality Status Provider Name and Address Organization Details Recorded Time 08/03/19 15 Colonoscopy completed Mando Carey [address] [place], [address], [facility] [place] 11/23/2017 [...] Updated DateTime 4 175.26 cm 29.5 kg/m2 75872.4 7 g 100 /min 98 % 98 % 144 mm[Hg] 74 mm[Hg] [facility] 4 14:37:07 Social History Question Answer Notes LastModified by Organizat ion Details LastModified Time Tobacco Smoking Status Former Smoker Not Available [facility] 01/23/2020 03:36:24 What Was The Date Of Your Most Recent Tobacco Screening? 03/31/2024 [email or web address] Information not available 03/31/2024 Do You Or [...] conjugate PCV 13 8 completed Mando Carey, [address] [place], [address], [facility] 12/31/2017 09:32:36 Influenza, split virus, quadrivalent, preservative 8 completed Mando Carey DO [address] [place], [address], [facility] 12/31/2017 09:32:44 influenza, unspecified formulation 2 completed Christianne ham [facility] 05/15/2022 14:28:14 Td (adult) 2 completed Soheila ham [facility] 03/18/2018 12:07:16 zoster live 5 completed Soheila ham [facility] 03/18/2018 12:07:45 Influenza, split virus, quadrivalent, preservative 9 completed Opal ham [facility] 11/30/2018 08:02:18 Influenza, split virus, quadrivalent, preservative 0 completed Opal ham [facility] 01/23/2020 13:29:57 COVID-19, mRNA, LNP-S, PF, 100 mcg/0.5mL dose or 50 mcg/0.25mL dose 1 completed Soheila ham [facility] 08/05/2020 15:50:51 COVID-19, mRNA, LNP-S, PF, 100 mcg/0.5mL dose or 50 mcg/0.25mL dose 1 completed Soheila ham [facility] 08/06/2020 15:04:10 Past Encounters Encounter ID Performer Location Encounter Start Date Encounter Closed Date Diagnosis/Indication Diagnosis SNOMED-CT Code Diagnosis ICD10 Code Diagnosis Note [id number] Mando Carey DO [facility] [address] [facility] [address] 01/25/2024 10:42:42 01/25/2024 11:47:58 Depression screening 494605356 Z13.31 neg Active or passive immunization 599440821 Z23 utd Essential hypertension 05151077 I10 running now with sys in 140's Polymyalgi a rheumatica 21789079 M35.3 Dyspnea on exertion 6084 5006 R06.09 [id number] Mando Carey DO [facility] [address] [facility] [address] 02/14/2024 14:22:44 02/14/2024 15:04:32 Essential hypertension 75228108 I10 running now with sys in 140's Hypercholesterolemia 136 75535 E78.00 tolerating the atorvastat in and the last LDL is 119 and HDL is 48 Polymyalgi a rheumatica 60946937 M35.3 Insomnia 358457233 G47.0 9 Health Concerns Section Related Observation LastModified by Organization Detai ls LastModified Time None Recorded Concern Status LastModified by Organization Details LastModified Time None Recorded Payers Encounter Date Sequence Insurance Name Policy Number Policy Leyva Covered Member ID Leyva Member ID Guarantor Name 02/14/2024 1 [place] [employer] Zaid Castro [id number] Zaid Castro 02/14/2024 2 [place] [id number] Zaid Castro [id number] Zaid Castro Notes Date Note Type [...] states feels great Mando Carey DO [address] [facility] [place], [address], [facility] [place] 02/14/2024 15:02:29
[2024-04-07 05:23] LABS: Estimated Average Glucose 126 mg/dL; Hemoglobin A1C 163.4252 umol/L; Total Hemoglobin (HGBA1C) 3934.8332 umol/L
[2024-04-11 15:39] LABS: Babesia IgG <1:64 titer (<1:64); Babesia IgM <1:20 titer (<1:20)
[2024-04-11 15:48] LABS: SARS COV2 IgG Negative (Negative)
== END 2024-04-06 14:46 | disposition home or self-care (01) ==
LOC: HO.WFDLDS 14:45
PROVIDERS: Visit Provider Internal Medicine
DX: M35.3 Polymyalgia rheumatica (principal); R73.9 Hyperglycemia, unspecified; R20.2 Paresthesia of skin
CPT/HCPCS: 36415; 82607; 82746; 83036; 84443; 85652; 86753; 86769

== ENCOUNTER 2024-04-20 10:55 | Outpatient (REF) | payer MEDICARE, SELFPAY ==
[2024-04-20 14:58] LABS: Erythrocyte Sedimentation Rate 2 MM/HR (0-15)
[2024-04-20 15:05] LABS: Prostate Specific Antigen 2.46 ng/mL (<0.05-4.0)
== END 2024-04-20 10:56 | disposition home or self-care (01) ==
LOC: HO.WFDLDS 10:55
PROVIDERS: Internal Medicine; Visit Provider Physician Assistant
DX: N40.1 Benign prostatic hyperplasia with lower urinary tract symptoms (principal); Z12.5 Encounter for screening for malignant neoplasm of prostate
CPT/HCPCS: 36415; 84153; 85652

== ENCOUNTER 2024-06-12 13:53 | Outpatient (REF) | payer MEDICARE, SELFPAY ==
[2024-06-12 17:45] LABS: MANUAL DIFF FLAG NO
[2024-06-12 18:07] LABS: Basophils Percent Auto 0.6 % (0-2); Eosinophils Absolute Auto 0.2 X10*3/uL (0.0-0.4); Hematocrit 49.1 % (42.0-52.0); Hemoglobin 16.1 g/dl (14.0-18.0); Imm Gran Abs Auto 0.05 X10*3/uL (0.00-0.03); Imm Gran Pct Auto 0.7 % (0.0-0.4); Lymphocytes Absolute Auto 1.3 X10*3/uL (1.2-4.9); Lymphocytes Percent Auto 18.5 % (20-40); Mean Corpuscular HGB Conc 32.8 g/dl (31.0-36.0); Mean Corpuscular Hemoglobin 30.7 pg (27.0-33.0); Mean Corpuscular Volume 93.5 fL (80.0-98.0); Mean Platelet Volume 10.2 fL (9.4-12.4); Monocytes Absolute Auto 0.8 X10*3/uL (0.1-1.2); Monocytes Percent Auto 11.3 % (2-11); Neutrophils Absolute Auto 4.8 x10*3/uL (2.0-8.3); Neutrophils Percent Auto 65.9 % (45-73); Platelet Count 257 X10*3/uL (160-400); Red Blood Count 5.25 X10*6/uL (4.60-5.80); Red Cell Distribution Width 13.7 % (11.0-16.0); White Blood Count 7.3 X10*3/uL (4.8-10.8)
[2024-06-12 18:08] LABS: Alanine Aminotransferase 13 U/L (0-40); Albumin Level 4.1 g/dL (3.5-5.0); Alkaline Phosphatase 54 U/L (39-117); Anion Gap 16 (12-20); Aspartate Amino Transferase 20 U/L (5-37); Bilirubin Total 0.4 mg/dL (0.0-1.0); Blood Urea Nitrogen 29 mg/dL (9-16); Calcium 9.2 mg/dL (8.4-10.2); Carbon Dioxide 25 mmol/L (22-29); Chloride 103 mmol/L (96-108); Estimated Glomerular Filt Rate > 60; Glucose Random 92 mg/dL (60-115); Potassium 4.5 mmol/L (3.3-5.1); Sodium 139 mmol/L (135-145); Total Protein 6.9 g/dL (6.5-8.0)
[2024-06-12 18:25] LABS: Erythrocyte Sedimentation Rate 8 MM/HR (0-15)
[2024-06-12 18:26] LABS: Thyroid Stimulating Hormone 1.87 uIU/mL (0.32-4.0)
[2024-06-12 18:34] LABS: Vitamin B12 344 pg/mL (200-900)
== END 2024-06-12 13:54 | disposition home or self-care (01) ==
LOC: HO.MANLDS 13:53
PROVIDERS: Visit Provider Internal Medicine
DX: M35.3 Polymyalgia rheumatica (principal); R53.83 Other fatigue
CPT/HCPCS: 36415; 80053; 82607; 84443; 85025; 85652; 86140